=== PATIENT | male | born 1960 | race Caucasian/White ===

== ENCOUNTER 2017-08-10 03:50 | Inpatient (IN) | payer MEDICAID ==
[2017-08-10] VITALS (13 sets, daily range): BP systolic 89–165; BP diastolic 37–94
[~2017-08-10] VITALS: Ht 167.6 cm; Wt 90.7 kg
--- NOTE | 2017-08-10 03:50 | NUR ---
JUVE ALS TO ER BED 5
--- NOTE | 2017-08-10 03:50 | NUR ---
BIB EMS FROM HOME. PATIENT PRESENTS TO ED WITH LEFT SHOULDER PAIN, CHEST PAIN, GENERALIZED PAIN, HYPOTENTION AND BRADYCARDIA. PT ENDSTAGE RENAL DISEASE. A&OX4, DENIES N/V/D; SKIN IS PINK/WARM/DRY; LUNGS CLEAR BL; HR EVEN AND REGULAR; PT DENIES ANY FEVER, SOB, OR COUGH AT THIS TIME; PATIENT STATES PAIN OF 10/10 AT THIS TIME; VSS; PATIENT POSITIONED FOR COMFORT; HOB ELEVATED; BEDRAILS UP X2; BED DOWN. ER MD MADE AWARE OF PT STATUS. CONTINUE TO MONITOR.
[2017-08-10] MEDS ORDERED: LEVOFLOXACIN 500 MG/D5W PREMIX 100 ML IV ONE (04:05)
[2017-08-10] MEDS ORDERED: VANCOMYCIN 1,000 MG in DEXTROSE 5% 250 ML IV ONE (04:05)
[2017-08-10] MEDS ORDERED: NACL 0.9% 2,400 ML IV ONE (04:05)
[2017-08-10 04:27] LABS: BASOPHILS % (AUTO) 0.8 % (0.0-2.0); EOSINOPHILS # (AUTO) 0.1 K/uL (0-0.4); EOSINOPHILS % (AUTO) 1.1 % (0.0-4.0); HEMATOCRIT 34.9 % (36-52); HEMOGLOBIN 11.3 g/dL (12.0-18.0); LYMPHOCYTES # (AUTO) 0.7 K/uL (2.0-11.5); LYMPHOCYTES % (AUTO) 10.8 % (20.5-51.1); MEAN CORPUSCULAR HEMOGLOBIN 31 pg (27-31); MEAN CORPUSCULAR HGB CONC 32 g/dL (33-37); MEAN CORPUSCULAR VOLUME 95.4 fL (80-94); MONOCYTES # (AUTO) 0.4 K/uL (0.8-1.0); MONOCYTES % (AUTO) 5.8 % (1.7-9.3); NEUTROPHILS # (AUTO) 5.1 K/uL (1.8-7.7); NEUTROPHILS % (AUTO) 81.5 % (42.2-75.2); PLATELET COUNT (AUTO) 110 K/uL (140-450); RED BLOOD CELL COUNT(AUTO) 3.66 MIL/uL (4.20-6.10); RED CELL DISTRIBUTION WIDTH 16.4 % (11.6-13.7); WHITE BLOOD COUNT (AUTO) 6.2 K/uL (4.8-10.8)
[2017-08-10 04:42] LABS: ALBUMIN 2.9 g/dL (3.4-5.0); ANION GAP 21.5 (8-16); CARBON DIOXIDE 25.9 mmol/L (21-32); POTASSIUM 5.4 mmol/L (3.5-5.1); TOTAL BILIRUBIN 1.1 mg/dL (0.0-1.0)
[2017-08-10] MEDS ORDERED: VANCOMYCIN 1,000 MG VIAL ONE (05:19)
[2017-08-10] MEDS ORDERED: NOREPINEPHRINE 4 MG/4 ML VIAL IV ONE (05:56)
--- NOTE | 2017-08-10 06:10 | NUR ---
STARTED LEVOPHED 4MG/4ML MIXED IN 250ML OF D5W, AT 5MCG/HR, 18.75ML/HR.
[2017-08-10] MEDS ORDERED: PHO667 PO (06:39)
[2017-08-10] MEDS ORDERED: LOSA50TA39 PO (06:41)
[2017-08-10] MEDS ORDERED: NIFE60TE8 PO (06:43)
[2017-08-10] MEDS ORDERED: MULT-1469 PO (06:44)
[2017-08-10] MEDS ORDERED: SUCR500C PO (06:45)
[2017-08-10] MEDS ORDERED: VITA1TAB44 PO (06:46)
[2017-08-10] MEDS ORDERED: HYDR100T79 PO (06:47)
[2017-08-10] MEDS ORDERED: FURO40TA9 PO (06:48)
[2017-08-10] MEDS ORDERED: NOREPINEPHRINE 4 MG in DEXTROSE 5% 250 ML IV ONE (06:50)
--- NOTE | 2017-08-10 07:05 | NUR ---
GAVE REPORT AND TRANSFERED CARE TO JESSICA INMAN
--- NOTE | 2017-08-10 07:10 | NUR ---
per report from Leonardo INMAN, attempted to obtain urine sample but no urine sample yet. will follow up.
--- NOTE | 2017-08-10 07:10 | NUR ---
asssumed care of patient. pt is aox4. gcs=15. rr are even and unlabored. blood mowzzhui=863/89. vss. awaiting admit orders.
--- NOTE | 2017-08-10 07:10 | NUR ---
levophed at 5mcg/ml and running without difficultly.
[2017-08-10] MEDS ORDERED: NACL 0.9% 1,000 ML IV SCH (07:13)
[2017-08-10] MEDS ORDERED: DOCUSATE SODIUM 100 MG GELCAP PO PRN (07:15)
[2017-08-10] MEDS ORDERED: ONDANSETRON 4 MG/2 ML VIAL IM/IVP PRN (07:15)
[2017-08-10] MEDS ORDERED: MORPHINE SULFATE 2 MG/ML SYR IVP PRN (07:15)
[2017-08-10] MEDS ORDERED: ACETAMINOPHEN 325 MG TAB PO PRN (07:15)
[2017-08-10 07:37] LABS: PROTHROMBIN TIME 11.8 secs (10.8-13.4)
--- NOTE | 2017-08-10 07:46 | NUR ---
endorsed to Lory INMAN no urine sample obtained
--- NOTE | 2017-08-10 07:46 | NUR ---
Patient will be admitted to [facility]. Admited to ICU. Will go to room ICU 3. Belongings list completed. Bedside report to Lory INMAN.
--- NOTE | 2017-08-10 07:50 | NUR ---
ADMITTED PT FROM ER BY RORY. PT AWAKE, ALERT. LAO UZBEK SPEAKING. ON O2 NC 2L/MIN. NO S/S OF RESPIRATORY DISTRESS NOTED AT THIS TIME. HOOKED PT ON BEDSIDE MONITOR SHOWING SR. PT HAS RIGHT ARM AV FISTULA, IV TO LEFT ARM RUNNING LEVOPHED AT 5 MCG/MIN. PT ABLE TO MOVE ALL HIS EXTREMITIES.POC EXPLAINED TO PT, ORIENTED PT, CALL LIGHT IN REACH, WILL CONTINUE TO MONITOR. MRSA NARES SENT TO LAB
[2017-08-10 07:51] LABS: CHOL/HDL RATIO 2.5 (1-4.5); FREE T4 (FREE THYROXINE) 1.17 ng/dL (0.76-1.46); MAGNESIUM 3.4 mg/dL (1.8-2.4); PHOSPHORUS 7.7 mg/dL (2.5-4.9); THYROID STIMULATING HORMONE 3.99 uIU/mL (0.34-3.74)
--- NOTE | 2017-08-10 11:45 | NUR ---
DR. FLORES TALKED WITH PT, EXPLAINED BENEFITS AND RISKS OF CENTRAL LINE INSERTION, PT REFUSED.
[2017-08-10] MEDS ORDERED: VANCOMYCIN PER PHARMACY MC PRN (11:55)
--- NOTE | 2017-08-10 12:00 | NUR ---
HOLD PT LUNCH TRAY DUE TO PT HAS ABD US.
--- NOTE | 2017-08-10 12:50 | NUR ---
PATIENT HAS BEEN SCREENED AND CATEGORIZED HIGH NUTRITION RISK. PATIENT WILL BE SEEN WITHIN 1-2 DAYS OF ADMISSION. 08/10/17 - 08/11/17 DEREK JESUS MBA, RD
--- NOTE | 2017-08-10 14:31 | NUR ---
PT SLEEPING AT THIS TIME. NO S/S OF RESPIRATORY DISTRESS NOTED. PT BP 131/78, HR 68, O2 SATS 95% AT THIS TIME.
[2017-08-10] MEDS: CALCIUM ACETATE 667 MG TAB PO SCH ×2 (14:37→21:45)
--- NOTE | 2017-08-10 16:09 | NUR ---
DIALYSIS NURSE AT BEDSIDE TO START DIALYSIS
--- NOTE | 2017-08-10 18:16 | NUR ---
DIALYSIS IN PROCESS, PT TOLERATED WELL. NO S/S OF RESPIRATORY DISTRESS NOTED.
--- NOTE | 2017-08-10 19:21 | NUR ---
HD NURSE FINISHED TREATMENT. 3.2 L OUT. NO S/S OF ACUTE DISTRESS WILL CONTINUE TO MONITOR.
--- NOTE | 2017-08-10 19:21 | NUR ---
RECEIVED REPORT FROM DAY NURSE NO ACUTE DISTRESS NOTED. WILL CONTINUE TO OBSERVE.
--- NOTE | 2017-08-10 19:35 | NUR ---
PT AAOX4 FOLLOWING COMMANDS MOVING ALL EXTREMITIES WELL. LUNGS DIMINISHED BREATH SOUNDS, DENIES SOB/CP @ THIS TIME. NSR 80S. NO EDEMA NOTED. HD FISTULA TO R UPPER ARM NOTED, + BRUIT/THRILL. ABDOMEN SOFT NON DISTENDED + BOWEL SOUNDS. PT STATES HE URINATES BUT VERY LITTLE DAILY. SKIN INTACT. PERIPHERAL IV X2 TO L LOWER ARM NOTED. NO OTHER S/S OF DISTRESS NOTED. WILL CONTINUE TO OBSERVE.
--- NOTE | 2017-08-10 19:45 | NUR ---
NOTIFIED RADIOLOGY THAT PT FINISHED HD TREATMENT FOR TODAY AND IS READY FOR ULTRASOUND. WILL CONTINUE TO MONITOR.
--- NOTE | 2017-08-10 20:28 | NUR ---
NOTIFIED DR. NELSON INTELLIGENCE OFFICER ABOUT IVF. NEW ORDERS GIVEN. IV CHANGED TO RUN TKO. WILL CONTINUE TO MONITOR.
[2017-08-10] MEDS: NIFEdipine 60 MG TABER PO SCH (21:45)
[2017-08-10] MEDS: FUROSEMIDE 40 MG TAB PO SCH (21:45)
--- NOTE | 2017-08-10 21:50 | NUR ---
ULTRASOUND FINISHED. PT GIVEN LATE DINNER TRAY. DENIES PAIN @ THIS TIME NO OTHER S/S OF DISTRESS NOTED. WILL CONTINUE TO OBSERVE.
[2017-08-10] MEDS: HYDROcodone/APAP 7.5/325 MG 1 TAB PO PRN (22:15)
[2017-08-11] VITALS (7 sets, daily range): BP systolic 98–151; BP diastolic 59–94
--- NOTE | 2017-08-11 00:09 | NUR ---
PT ASLEEP, AROUSABLE. DENIES SOB/CP @ THIS TIME. NO OTHER S/S OF ACUTE DISTRESS NOTED. WILL CONTINUE TO OBSERVE.
[2017-08-11 04:10] LABS: BASOPHILS # (AUTO) 0.1 K/uL (0.00-0.22); BASOPHILS % (AUTO) 1.3 % (0.0-2.0); EOSINOPHILS # (AUTO) 0.1 K/uL (0-0.4); EOSINOPHILS % (AUTO) 2.5 % (0.0-4.0); HEMATOCRIT 33.8 % (36-52); HEMOGLOBIN 10.7 g/dL (12.0-18.0); LYMPHOCYTES # (AUTO) 0.7 K/uL (2.0-11.5); LYMPHOCYTES % (AUTO) 12.7 % (20.5-51.1); MEAN CORPUSCULAR HEMOGLOBIN 31 pg (27-31); MEAN CORPUSCULAR HGB CONC 32 g/dL (33-37); MEAN CORPUSCULAR VOLUME 96.9 fL (80-94); MONOCYTES # (AUTO) 0.5 K/uL (0.8-1.0); NEUTROPHILS # (AUTO) 4.1 K/uL (1.8-7.7); NEUTROPHILS % (AUTO) 74.5 % (42.2-75.2); PLATELET COUNT (AUTO) 102 K/uL (140-450); RED BLOOD CELL COUNT(AUTO) 3.49 MIL/uL (4.20-6.10); RED CELL DISTRIBUTION WIDTH 16.8 % (11.6-13.7); WHITE BLOOD COUNT (AUTO) 5.4 K/uL (4.8-10.8)
[2017-08-11 05:59] LABS: MAGNESIUM 2.8 mg/dL (1.8-2.4)
[2017-08-11 06:00] LABS: PHOSPHORUS 6.8 mg/dL (2.5-4.9)
--- NOTE | 2017-08-11 06:00 | NUR ---
AM CARE DONE. LINEN CHANGED. PT DENIES CP/ SOB. NO ACUTE S/S OF DISTRESS NOTED. WILL CONTINUE TO OBSERVE.
[2017-08-11 06:18] LABS: ANION GAP 12.7 (8-16); CARBON DIOXIDE 28.9 mmol/L (21-32); POTASSIUM 4.6 mmol/L (3.5-5.1)
[2017-08-11 06:20] LABS: CREATININE 6.1 mg/dL (0.7-1.3)
--- NOTE | 2017-08-11 06:45 | NUR ---
DR. FLORES @ BEDSIDE TALKING TO PT.
--- NOTE | 2017-08-11 07:18 | NUR ---
REPORT GIVEN TO DAY NURSE. ORDERS POC UPDATED. NO ACUTE DISTRESS WILL CONTINUE TO OBSERVE.
--- NOTE | 2017-08-11 07:30 | NUR ---
RECEIVED PT FROM PM NURSE, PT AWAKE, ALERT AND ORIENTED. BEDSIDE MONITOR SHOWS SR. ON O2 NC 2L/MIN, NO S/S OF RESPIRATORY DISTRESS NOTED. IV SITE INTACT AND PATENT. SCDS IN PLACE, PT ABLE TO MOVE ALL HIS EXTREMITIES.POC EXPLAINED TO PT, PT VERBALIZED UNDERSTANDING, CALL LIGHT IN REACH, WILL CONTINUE TO MONITOR.
[2017-08-11] MEDS: NIFEdipine 60 MG TABER PO SCH ×2 (08:19→20:41)
[2017-08-11] MEDS: FUROSEMIDE 40 MG TAB PO SCH ×2 (08:20→20:41)
[2017-08-11] MEDS: LOSARTAN 50 MG TAB PO SCH (08:20)
[2017-08-11] MEDS: LACTOBACILLUS RHAMNOSUS GG 1 EACH CAP PO SCH (08:20)
[2017-08-11] MEDS: VIT-B COMP/VIT-C/FOLIC ACID 1 TAB PO SCH (08:20)
[2017-08-11] MEDS: CALCIUM ACETATE 667 MG TAB PO SCH ×3 (08:20→16:44)
--- NOTE | 2017-08-11 08:45 | NUR ---
OFFERED PT BREAKFAST TRAY, PT HAD A GOOD APPETITE.
[2017-08-11] MEDS ORDERED: VIT-B COMP/VIT-C/FOLIC ACID 1 TAB PO SCH (09:00)
[2017-08-11] MEDS ORDERED: VANCOMYCIN 1GM/DEXT 5% PREMIX 200 ML IV SCH (09:00)
--- NOTE | 2017-08-11 10:45 | NUR ---
PT TRANSFERRED TO [place] [id number] BY RORY, PT AWAKE, ALERT, AND ORIENTED. ON O2 NC 2L/MIN, NO S/S OF RESPIRATORY DISTRESS NOTED. PT WALKED TO BED FROM HALLWAY.
--- NOTE | 2017-08-11 11:05 | NUR ---
RECEIVED PATIENT FROM ICU ,MACKENZIE RN FOR CONTINUITY OF CARE. PATIENT AWAKE A/OX4 O2 2L/NC NO S/S OF RESP DISTRESS NOTED. DENIES ANY PAIN. AV SHUNT GINI BRUIT AND THRILL. SPOKE WITH ADALID LOYOLA DIALYSIS NURSE, SCHEDULED HD LATE AFTERNOON BECAUSE OF THORACENTESIS NEEDS TO BE DONE FIRST. SPOKE WITH CARRIE SpineForm TECH NEEDS TO REEVALUATE THE FLUID BEFORE THORACENTESIS. PLAN OF CARE DISCUSSED WITH THE PATIENT VITALS STABLE WILL CONTINUE TO MONITOR.
--- NOTE | 2017-08-11 12:18 | NUR ---
FAXED INITIAL REVIEW TO [facility] [phone] PHONE JOSIAS [phone] FAXED INITIAL REVIEW TO KIMBER [phone] PHONE CLEMENT [phone]
[2017-08-11] MEDS ORDERED: PIPER/TAZO 3.375GM/D5W PREMIX 50 ML IV SCH (13:00)
--- NOTE | 2017-08-11 14:41 | NUR ---
08/11/17 RD INITIAL ASSESSMENT COMPLETED PLEASE REFER TO NUTRITION ASSESSMENT UNDER CARE ACTIVITY FOR ESTIMATED NUTRITIONAL NEEDS. 1. CONTINUE RENAL, NA2 GM, LOW PHOSPHORUS DIET TOLERATED 2. PROVIDE PT WITH RENAL DIET EDUCATION 3. RD TO FOLLOW-UP 2-3 DAYS, HIGH RISK ANNE XIONG, VIVI
--- NOTE | 2017-08-11 16:47 | NUR ---
DUE MEDS GIVEN TOLERATED WELL ,VITALS STABLE
--- NOTE | 2017-08-11 18:57 | NUR ---
PATIENT IS HAVING HEMODIALYSIS , SAFETY MAINTAINED CALL LIGHT IN REACH.
--- NOTE | 2017-08-11 19:25 | NUR ---
INCREASED NASAL CANNULA FROM 2LPM TO 3LPM DUE TO SAO2 AT 88% , ON 3LPM SAO2-94%
--- NOTE | 2017-08-11 19:30 | NUR ---
ASSUMED CARE OF PATIENT, AWAKE. NO COMPLAINS. S/P HD NOTED. CALL LIGHT WITHIN REACH.
[2017-08-11] MEDS: PIPER/TAZO 2.25GM/D5W PREMIX 50 ML IV SCH (20:42)
--- NOTE | 2017-08-11 21:09 | NUR ---
JUST FINISHED EATING DINNER. NO COMPLAINS. VITAL SIGNS STABLE. AFEBRILE. DUE MEDS GIVEN. CARE BOARD UPDATED. CALL LIGHT WITHIN REACH. PLAN OF CARE DISCUSSED WITH PATIENT, VERBALIZED UNDERSTANDING WELL.
[2017-08-12 01:23] VITALS: BP 121/70
--- NOTE | 2017-08-12 01:25 | NUR ---
ASLEEP EASILY AROUSABLE. NO COMPLAINS. VITAL SIGNS STABLE. CALL LIGHT WITHIN REACH.
[2017-08-12] MEDS: PIPER/TAZO 2.25GM/D5W PREMIX 50 ML IV SCH ×3 (04:27→21:26)
[2017-08-12 04:37] VITALS: BP 95/57
--- NOTE | 2017-08-12 04:38 | NUR ---
ASLEEP NO COMPLAINS. VITAL SIGNS STABLE. AFEBRILE. CALL LIGHT WITHIN REACH.
--- NOTE | 2017-08-12 05:45 | NUR ---
UPON MAKING ROUNDS, PATIENT VERBALIZED PROTEIN CHEMIST ORIENTEE DRAWN THE PATIENT IN THE RESTRICTED ARM RIGHT ARM. PRECEPTOR RAY WAS NOT IN THE ROOM WHEN PATIENT BEING DRAWN. ARM BAND WITH RESTRICTED ARM ON-PINK BAND. SIGN POSTED INSIDE ROOM, ORIENTEE VERBALIZED SHE DOES NOT KNOWN ABOUT IT AND REINFORCED THE IMPORTANCE. ASKED THE PATIENT WHY HE ALLOWED THE ORIENTEE TO PROCEED, PATIENT DID NOT ANSWER MY QUESTION. REGIONAL WILDLIFE AGENT KRIS MADE AWARE.
[2017-08-12 06:09] LABS: BASOPHILS # (AUTO) 0.1 K/uL (0.00-0.22); BASOPHILS % (AUTO) 1.4 % (0.0-2.0); EOSINOPHILS # (AUTO) 0.1 K/uL (0-0.4); EOSINOPHILS % (AUTO) 1.6 % (0.0-4.0); HEMOGLOBIN 10.7 g/dL (12.0-18.0); LYMPHOCYTES # (AUTO) 0.8 K/uL (2.0-11.5); LYMPHOCYTES % (AUTO) 15.1 % (20.5-51.1); MEAN CORPUSCULAR HEMOGLOBIN 31 pg (27-31); MEAN CORPUSCULAR HGB CONC 32 g/dL (33-37); MEAN CORPUSCULAR VOLUME 95.9 fL (80-94); MONOCYTES # (AUTO) 0.5 K/uL (0.8-1.0); MONOCYTES % (AUTO) 9.1 % (1.7-9.3); NEUTROPHILS # (AUTO) 3.9 K/uL (1.8-7.7); NEUTROPHILS % (AUTO) 72.8 % (42.2-75.2); PLATELET COUNT (AUTO) 97 K/uL (140-450); RED BLOOD CELL COUNT(AUTO) 3.44 MIL/uL (4.20-6.10); RED CELL DISTRIBUTION WIDTH 16.4 % (11.6-13.7); WHITE BLOOD COUNT (AUTO) 5.4 K/uL (4.8-10.8)
[2017-08-12 06:22] LABS: T4 (THYROXINE) 4.9 ug/dL (4.5-12.0)
[2017-08-12 06:47] LABS: CARBON DIOXIDE 26.7 mmol/L (21-32); POTASSIUM 4.7 mmol/L (3.5-5.1)
[2017-08-12 06:53] LABS: CREATININE 7.3 mg/dL (0.7-1.3)
[2017-08-12 06:55] LABS: MAGNESIUM 2.9 mg/dL (1.8-2.4); PHOSPHORUS 7.5 mg/dL (2.5-4.9)
--- NOTE | 2017-08-12 07:29 | NUR ---
ENDORSED CARE AT BEDSIDE WITH BRANDEN INMAN, PATIENT IN STABLE CONDITION.
--- NOTE | 2017-08-12 08:02 | NUR ---
AWAKE AND ALERT RESPONSIVE TO COMMUNITY DEVELOPMENT MANAGER VERBAL COMMANDS PATIENT OFF SUPPLEMENTAL OXYGEN AT THIS TIME SATURATION 85% PLACED BACK ON SUPPLEMENTAL OXYGEN AT 3 LPM VIA FL HEMODIALYSIS IN PROGRESS TOY PAINTER AT BEDSIDE AND AWARE OF SATURATION
[2017-08-12 08:17] VITALS: BP 110/62
[2017-08-12 08:18] LABS: HEPATITIS A ANTIBODY IGM Negative (Negative); HEPATITIS B CORE AB TOTAL Negative (Negative); HEPATITIS B SURFACE ANTIBODY Non Reactive (.); HEPATITIS B SURFACE ANTIGEN Negative (Negative)
[2017-08-12] MEDS: FUROSEMIDE 40 MG TAB PO SCH ×2 (11:25→21:26)
[2017-08-12] MEDS: LACTOBACILLUS RHAMNOSUS GG 1 EACH CAP PO SCH (11:26)
[2017-08-12] MEDS: LOSARTAN 50 MG TAB PO SCH (11:27)
[2017-08-12] MEDS: CALCIUM ACETATE 667 MG TAB PO SCH ×3 (11:27→18:58)
[2017-08-12] MEDS: NIFEdipine 60 MG TABER PO SCH ×2 (11:28→21:26)
[2017-08-12] MEDS: VIT-B COMP/VIT-C/FOLIC ACID 1 TAB PO SCH (11:31)
--- NOTE | 2017-08-12 11:53 | NUR ---
Faxed Clinical REVIEW TO AL YOGI [phone] PHONE JOSIAS [phone] Faxed Clinical REVIEW TO KIMBER [phone] PHONE CLEMENT [phone]
[2017-08-12 12:00] VITALS: BP 130/66
[2017-08-12] MEDS: HYDROcodone/APAP 7.5/325 MG 1 TAB PO PRN (13:14)
[2017-08-12 16:23] VITALS: BP 128/67
--- NOTE | 2017-08-12 18:33 | NUR ---
FOUND PT WITH NASAL CANNULA OFF SAT 89. PLACED PT ON NC @ 2LPM. SAT 93 HR 73 RR 18. EXPLAINED TO PT THE PT NEED O2 AND TO NOT TAKE OFF NC. WILL CONT TO MONITOR PT.
--- NOTE | 2017-08-12 19:30 | NUR ---
REPORT RECEIVED FROM AM NURSE. PT IN STABLE CONDITION. WILL CONTINUE TO MONITOR.
--- NOTE | 2017-08-12 21:35 | NUR ---
PM MEDS GIVEN. PT TOLERATED WELL. BOARD WAS UPDATED. PT AMBULATORY. IV SITES ARE PATENT AND INTACT L WRIST AND AC 20G. WILL CONTINUE TO MONITOR.
[2017-08-13] VITALS: BP 111/64
--- NOTE | 2017-08-13 | NUR ---
VS STABLE. PT SLEEPING BUT AROUSABLE. WILL CONTINUE TO MONITOR.
--- NOTE | 2017-08-13 01:17 | NUR ---
PT DOCUMENTATION OF BASIC ADLS AT 1800 NOT DONE. COMPLETING WITH MY KNOWLEDGE OF PT INFORMATION.
--- NOTE | 2017-08-13 03:00 | NUR ---
PT ASLEEP BUT AWAKE AND ALERT UPON ENTERING THE ROOM. PT NOT IN ACUTE DISTRESS. WILL CONTINUE TO MONITOR.
[2017-08-13] MEDS: PIPER/TAZO 2.25GM/D5W PREMIX 50 ML IV SCH ×2 (04:57→12:35)
--- NOTE | 2017-08-13 05:15 | NUR ---
PT IV SITE LEAKING AND INFILTRATED. AREA COOL TO TOUCH AND PAIN PRESENT. IV SITE LEFT HAND DC. CANNULA INTACT. PT TOLERATED WELL. STILL HAS IV IN LEFT FOREARM. PT NOT IN ACUTE DISTRESS. WILL CONTINUE TO MONITOR.
[2017-08-13 06:49] LABS: BASOPHILS # (AUTO) 0.1 K/uL (0.00-0.22); BASOPHILS % (AUTO) 1.6 % (0.0-2.0); EOSINOPHILS # (AUTO) 0.1 K/uL (0-0.4); EOSINOPHILS % (AUTO) 2.5 % (0.0-4.0); HEMATOCRIT 34.4 % (36-52); HEMOGLOBIN 11.2 g/dL (12.0-18.0); LYMPHOCYTES # (AUTO) 0.9 K/uL (2.0-11.5); LYMPHOCYTES % (AUTO) 17.9 % (20.5-51.1); MEAN CORPUSCULAR HEMOGLOBIN 31 pg (27-31); MEAN CORPUSCULAR HGB CONC 33 g/dL (33-37); MEAN CORPUSCULAR VOLUME 95.8 fL (80-94); MONOCYTES # (AUTO) 0.4 K/uL (0.8-1.0); MONOCYTES % (AUTO) 8.4 % (1.7-9.3); NEUTROPHILS # (AUTO) 3.3 K/uL (1.8-7.7); NEUTROPHILS % (AUTO) 69.6 % (42.2-75.2); PLATELET COUNT (AUTO) 96 K/uL (140-450); RED BLOOD CELL COUNT(AUTO) 3.59 MIL/uL (4.20-6.10); RED CELL DISTRIBUTION WIDTH 16.6 % (11.6-13.7); WHITE BLOOD COUNT (AUTO) 4.8 K/uL (4.8-10.8)
[2017-08-13 07:05] LABS: ANION GAP 14.1 (8-16); CARBON DIOXIDE 30.5 mmol/L (21-32); POTASSIUM 4.6 mmol/L (3.5-5.1)
[2017-08-13 07:20] LABS: MAGNESIUM 2.6 mg/dL (1.8-2.4)
--- NOTE | 2017-08-13 07:22 | NUR ---
DAWNA FROM LAB CALLED AND REPORTED THE CRITICAL VALUE OF CREATININE FOR THE PT. IS 6.9, ACKNOWLEDGED AND WILL INFORM THE MD.
--- NOTE | 2017-08-13 07:25 | NUR ---
REPORT GIVEN TO AM NURSE. PT IN STABLE CONDITION.
[2017-08-13 07:27] LABS: CREATININE 6.5 mg/dL (0.7-1.3)
--- NOTE | 2017-08-13 07:30 | NUR ---
RECEIVED PT FROM DIRECT MARKETING SPECIALIST NURSEISMAEL, PT IS AWAKE AND LYING ON THE BED WITH A FISTULA ON THE RT UPPER ARM AND A LEFT FOREARM PERIPHERAL LINE G. 20, SALINE LOCK, INTACT. SIDE RAILS ARE UP AND CALL LIGHT WITHIN REACH. NURSING CARE PLAN DISCUSSED AND PT VERBALIZED UNDERSTANDING. NO SIGN OF DISTRESS NOTED AND WILL CONTINUE TO MONITOR.
[2017-08-13 08:00] VITALS: BP 109/62
--- NOTE | 2017-08-13 08:00 | NUR ---
PT IS AWAKE AND JUST HAD HIS BREAKFAST, VITAL SIGNS TAKEN AND STABLE, NO SIGN OF DISTRESS NOTED. CALL LIGHT WITHIN REACH AND SIDE RAILS ARE UP. WILL CONTINUE TO MONITOR.
[2017-08-13] MEDS: FUROSEMIDE 40 MG TAB PO SCH (08:55)
[2017-08-13] MEDS: VIT-B COMP/VIT-C/FOLIC ACID 1 TAB PO SCH (08:55)
[2017-08-13] MEDS: NIFEdipine 60 MG TABER PO SCH (08:55)
[2017-08-13] MEDS: LOSARTAN 50 MG TAB PO SCH (08:56)
[2017-08-13] MEDS: CALCIUM ACETATE 667 MG TAB PO SCH ×2 (08:56→12:42)
[2017-08-13] MEDS: LACTOBACILLUS RHAMNOSUS GG 1 EACH CAP PO SCH (08:56)
--- NOTE | 2017-08-13 09:59 | NUR ---
ACKNOWLEDGED AN ORDER FOR THE PT FOR A SOCIAL SERVICE REQUEST, PT NEEDS A HOME HEALTH WITH PT AND A HOME SAFETY EVALUATION.
--- NOTE | 2017-08-13 10:30 | NUR ---
CALLED ENGINEERING AND SPOKE TO JAMES REGARDING THE WATER DRIPPING FROM THE VENT ON THE CEILING AT THE FRONT DOOR IN THE PT'S ROOM, JAMES SAID THAT SHE WILL SEND SOMEBODY TO CHECK IT.
--- NOTE | 2017-08-13 10:45 | NUR ---
SPOKE TO DR. YOUSSEF REGARDING THE PT'S HX OF DM AND ASKED IF PT IF PT NEEDS TO HAVE A BLOOD GLUCOSE CHECKING BEC NO ORDER WAS SEEN IN THE PT'S PROFILE. DR. YOUSSEF SAID THAT HE WILL PUT AN ORDER.
--- NOTE | 2017-08-13 11:20 | NUR ---
Jewelry Model Maker Note: I met with patient at bedside. Patient Citizen Of [place] speaking. I informed him of MD's request for home health services for him. Patient in agreement with home health services. I explained to him case finishing machine adjuster Lara will contact case finishing machine adjuster from his health insurance plan to coordinate home health services and that home health will contact him (patient) regarding home visits. He verbalized understanding. I verified with patient, home address and phone number listed on face sheet.
--- NOTE | 2017-08-13 12:15 | NUR ---
DR. PULIDO IS ON THE STATION AND SPOKE TO ME REGARDING THE PT'S STATUS. INFORMED THE MD THAT THE PT HAS NO PAIN AND THAT PT IS ON 2L O2 NC, DR. PULIDO SAID TO HAVE THE PT WALK WITHOUT AN O2 IN PLACE AND OBSERVE IF PT WILL HAVE SOB. ORDER ACKNOWLEDGED.
--- NOTE | 2017-08-13 12:20 | NUR ---
PT WALKED IN THE HALLWAY WITH THE PT, RACHEL AND NO SOB NOTED BUT OS SAT IS RANGING FROM 89% - 95% WITHOUT ANY SIGN OF DISTRESS. ASSISTED PT BACK TO ROOM AND BED.
--- NOTE | 2017-08-13 12:35 | NUR ---
PT RACHEL INFORMED ME THAT PT'S O2 SAT WENT DOWN TO 86 WHEN THEY DID AN EXERCISE. PT WAS HOOKED UP ON O2 VIA NC. NO SIGN OF DISTRESS NOTED. WILL CONTINUE TO MONITOR.
--- NOTE | 2017-08-13 12:50 | NUR ---
DR. FLORES SPOKE TO THE PT AND INFORMED THE PT THAT HE WILL BE DISCHARGE TODAY.
--- NOTE | 2017-08-13 12:55 | NUR ---
PT IS AWAKE AND HAVING HIS LUNCH, MEDICATIONS GIVEN THRU IVPB, PT TOLERATED IT AND NO SIGN OF DISTRESS NOTED. WILL CONTINUE TO MONITOR.
--- NOTE | 2017-08-13 13:03 | NUR ---
ACKNOWLEDGED A DISCHARGE ORDER PLACED FOR THE PT AT 12:45H, WILL FACILITATE DISCHARGE ORDER.
--- NOTE | 2017-08-13 14:27 | NUR ---
Sarah contacted for home PT edgar and unable to provide because he lives in [facility]. Mariajose Bergeron contacted, spoke to Andressa at cell [phone] and unable to provide for the same reason, he lives in [facility] and he is out of network.
--- NOTE | 2017-08-13 15:17 | NUR ---
Poising Inspector Note: I met with patient at bedside. Nepalese speaking. I explained to him disability case manager Lara was not able to coordinate home health services because he lives in [facility] and his health insurance is from [facility]. I informed him his health insurance plan stated they do not have any contracts with home health agencies that serve [facility]. He reported he use to live in [place], [place] about 3 months ago. I advised him to contact health insurance and inform them he now lives in [facility]. He verbalized understanding. He reported not having any questions nor concerns at this time.
--- NOTE | 2017-08-13 16:15 | NUR ---
DISCHARGED PT VIA WHEELCHAIR ACCOMPANIED BY THE SON, IV LINE AND ARM BANDS REMOVED. DISCHARGED INSTRUCTIONS GIVEN AND PT IS STABLE AT THIS TIME.
--- NOTE | 2017-08-14 14:57 | NUR ---
RECEIVED A CALL FROM [facility]. SHE SAID THAT [facility] CALLED AND THEY DIDN'T GET REVIEW ON THIS PATIENT. FAXED ER REPORT, H&P, CONSULTS AND PROGRESS NOTE TO THEM AT [phone] PHONE [phone].
== END 2017-08-13 16:15 | disposition home or self-care (01) | DRG 469 ==
LOC: MED 03:50 → MIC 07:18 → MTU 08-11 10:30
PROVIDERS: ADMIT Student in an Organized Health Care Education/Training Program; ATTEND Student in an Organized Health Care Education/Training Program
PROC: 5A1D70Z Performance of Urinary Filtration, Intermittent, Less than 6 Hours Per Day (ICD-10-PCS; principal; 2017-08-10)
PROC: 5A1D70Z Performance of Urinary Filtration, Intermittent, Less than 6 Hours Per Day (ICD-10-PCS; 2017-08-12)
DX: N17.0 Acute kidney failure with tubular necrosis (principal); J96.01 Acute respiratory failure with hypoxia; R57.9 Shock, unspecified; J69.0 Pneumonitis due to inhalation of food and vomit; I50.43 Acute on chronic combined systolic (congestive) and diastolic (congestive) heart failure; R18.8 Other ascites; E83.41 Hypermagnesemia; N18.6 End stage renal disease; D53.1 Other megaloblastic anemias, not elsewhere classified; I13.2 Hypertensive heart and chronic kidney disease with heart failure and with stage 5 chronic kidney disease, or end stage renal disease; E11.22 Type 2 diabetes mellitus with diabetic chronic kidney disease; E44.0 Moderate protein-calorie malnutrition; E87.5 Hyperkalemia; Z53.29 Procedure and treatment not carried out because of patient's decision for other reasons; E83.39 Other disorders of phosphorus metabolism; E66.9 Obesity, unspecified; N25.81 Secondary hyperparathyroidism of renal origin; D63.1 Anemia in chronic kidney disease; Z79.899 Other long term (current) drug therapy; Z99.2 Dependence on renal dialysis; Z83.3 Family history of diabetes mellitus; Z87.891 Personal history of nicotine dependence; Z68.32 Body mass index [BMI] 32.0-32.9, adult
CPT/HCPCS: 36415; 71045; 71250; 76604; 76705; 76770; 80048; 80053; 80202; 82150; 83036; 83605; 83690; 83735; 83880; 84100; 84436; 84439; 84443; 84479; 85025; 85610; 85730; 86704; 86706; 86708; 86709; 86803; 87040; 87081; 87340; 90935; 93005; 96365; 96367; 97110; 97116; 97530; 99291; C1758; J1956; J2405; J2543; J3370; J3490; J7030; Q0092

== ENCOUNTER 2018-07-18 00:44 | Inpatient (IN) | payer MEDICAID ==
[~2018-07-18] VITALS: Ht 170.2 cm; Wt 70.3 kg
[~2018-07-18 00:44] MED LIST: FURO40TA9 PO; HYDR100T79 PO; LOSA50TA66 PO; MULT-1469 PO; NIFE60TE8 PO; PHO667 PO; SUCR500C PO; VITA1TAB44 PO
[2018-07-18 00:46] VITALS: BP 156/80
--- NOTE | 2018-07-18 00:46 | NUR ---
TO BED # 04 AMBULATORY
--- NOTE | 2018-07-18 01:07 | NUR ---
PT BIB SON C/O SOB, 68% ON RA ON ARRIVAL. STARTED YESTERDAY AFTER A MISSED DIALYSIS APPOINTMENT. DENIES CP. LUNG SOUNDS DIMINISHED BILAT THROUGHOUT. PLACED ON 4L AND 94% SPO2 RESULTED. PT DIAPHORETIC, RESPIRATIONS EVEN/LABORED/GRUNTING NOTED/TRIPOD POSITION. SHUNT TO RUE. PLACED ON FULL MONITOR, BED IN LOW POSITION/LOCKED, SIDE RAIL UP X 1. DR. GREGORY MADE AWARE.
--- NOTE | 2018-07-18 01:09 | NUR ---
DR. GREGORY AT BEDSIDE
--- NOTE | 2018-07-18 01:10 | NUR ---
REPORT TO PRASAD CHAPA RN, TRANSFER OF CARE AT THIS TIME.
--- NOTE | 2018-07-18 01:11 | NUR ---
RECEIVED REPORT FROM JONATHAN INMAN, FOR CONTINUED CARE.
[2018-07-18 01:17] LABS: BASOPHILS # (AUTO) 0.1 K/uL (0.00-0.22); BASOPHILS % (AUTO) 0.7 % (0.0-2.0); EOSINOPHILS # (AUTO) 0.1 K/uL (0-0.4); EOSINOPHILS % (AUTO) 1.4 % (0.0-4.0); HEMATOCRIT 32.9 % (36-52); LYMPHOCYTES # (AUTO) 1.9 K/uL (2.0-11.5); LYMPHOCYTES % (AUTO) 19.8 % (20.5-51.1); MEAN CORPUSCULAR HEMOGLOBIN 32 pg (27-31); MEAN CORPUSCULAR HGB CONC 34 g/dL (33-37); MEAN CORPUSCULAR VOLUME 93.7 fL (80-94); MONOCYTES # (AUTO) 0.9 K/uL (0.8-1.0); MONOCYTES % (AUTO) 9.8 % (1.7-9.3); NEUTROPHILS # (AUTO) 6.6 K/uL (1.8-7.7); NEUTROPHILS % (AUTO) 68.3 % (42.2-75.2); PLATELET COUNT (AUTO) 297 K/uL (140-450); RED BLOOD CELL COUNT(AUTO) 3.51 MIL/uL (4.20-6.10); RED CELL DISTRIBUTION WIDTH 15.4 % (11.6-13.7); WHITE BLOOD COUNT (AUTO) 9.7 K/uL (4.8-10.8)
[2018-07-18 01:36] LABS: PROTHROMBIN TIME 10.3 secs (10.8-13.4)
[2018-07-18 01:51] LABS: ANION GAP 19.7 (8-16); CARBON DIOXIDE 25.9 mmol/L (21-32); POTASSIUM 5.6 mmol/L (3.5-5.1)
[2018-07-18 01:52] LABS: ALBUMIN 3.4 g/dL (3.4-5.0)
[2018-07-18 01:53] LABS: CREATININE 10.2 mg/dL (0.7-1.3)
[2018-07-18] MEDS ORDERED: NITROGLYCERIN 2% 1 GM PKT TP ONE (02:00)
[2018-07-18] MEDS ORDERED: ONDANSETRON 4 MG/2 ML VIAL IM/IVP PRN (03:00)
--- NOTE | 2018-07-18 03:20 | NUR ---
pATIENT ADMITTED TO TELE UNIT UNDER CARE OF DR. LARSON. REPORT GIVEN TO TELE NURSE, ROY. LEWIS TRANSPORTED ON MONITOR IN [facility]. VSS DURING TRANSFER.
--- NOTE | 2018-07-18 03:25 | NUR ---
ADMITTED THIS 57 YEAR OLD FROM ER PER RORY WITH CC OF SOB AND CONSTIPATION, AMBULATED TO BED WITH STANDBY ASSIST, VITAL SIGNS TAKEN, SAT-94% ON O2 4L VIA NASAL CANNULA, BP SLIGHTLY ELEVATED, DENIES CHEST PAIN, NO SOB NOTED AT THIS TIME, ASSESSMENT DONE, HX OBTAINED WITH nfon CAT TENDER NARINDER #[id number], ORIENTED TO ROOM AND CALL LIGHT, DR SLOAN CAME IN AND ASSESS THE PT, PLAN OF DISCUSSED, SAFETY MEASURES IN PLACE, CALL LIGHT WITHIN REACH.
[2018-07-18 03:30] VITALS: BP 155/70
[2018-07-18 03:43] LABS: CHOL/HDL RATIO 4.1 (1-4.5); FREE T4 (FREE THYROXINE) 1.36 ng/dL (0.76-1.46); MAGNESIUM 3.1 mg/dL (1.8-2.4); PHOSPHORUS 8.5 mg/dL (2.5-4.9); THYROID STIMULATING HORMONE 2.53 uIU/mL (0.34-3.74)
[2018-07-18] MEDS ORDERED: BISACODYL 10 MG SUPP RC PRN (04:45)
[2018-07-18] MEDS ORDERED: ALBUTEROL SULFATE/IPRATROPIU 3 ML SOL IH PRN (04:45)
[2018-07-18] MEDS ORDERED: BISACODYL 10 MG SUPP RC SCH (05:00)
[2018-07-18] MEDS ORDERED: METOPROLOL 25 MG TAB PO SCH (05:00)
[2018-07-18] MEDS ORDERED: LACTULOSE 20 GM/30 ML UDC PO SCH (05:00)
--- NOTE | 2018-07-18 05:46 | NUR ---
PT AMBULATED TO BR WITH STEADY GAIT, STATED ONLY HAD SMALL LOOSE STOOL, NO SOLID PIECE NOTED, PT BACK TO BED AND RESUMED O2 4L NASAL CANNULA, NO SOB NOTED, MONITORED CLOSELY.
--- NOTE | 2018-07-18 07:10 | NUR ---
PT AWAKE, NO SIGNS OF DISTRESS, REPORT GIVEN TO HENNY POLO FOR CONTINUITY OF CARE.
--- NOTE | 2018-07-18 07:11 | NUR ---
RECEIVED REPORT FROM LIME PULLER NURSE. PATIENT SITTING IN BED. NO DISTRESS NOTED. DENIES ANY PAIN. AAOX3, CALM, COOPERATIVE, SKIN COLOR APPROPRIATE TO ETHNICITY, WARM TO TOUCH. SKIN INTACT. HAS RIGHT UPPER ARM AV FISTULA NOTED, THRILL FELT, BREWING HEARD. PER PATIENT, HAD SMALL BM LAST NIGHT. IV SITE INTACT, PATENT, ON SALINE LOCK. REVIEWED PLAN OF CARE WITH PATIENT. PATIENT VERBALIZED UNDERSTANDING. SAFETY MEASURES IN PLACE, CALL LIGHT WITHIN REACH. WILL CONTINUE TO MONITOR.
[2018-07-18 08:00] VITALS: BP 127/71
--- NOTE | 2018-07-18 08:10 | NUR ---
CALLED RAUL AT ACUTE DIALYSIS AND NOTIFIED HER WITH THE PT'S HEMODIALYSIS PLAN FOR TODAY.
[2018-07-18] MEDS: METOPROLOL 25 MG TAB PO SCH ×2 (09:00→20:22)
[2018-07-18] MEDS: LACTULOSE 20 GM/30 ML UDC PO SCH ×2 (09:37→20:22)
--- NOTE | 2018-07-18 09:45 | NUR ---
PATIENT SITTING IN BED. NO DISTRESS NOTED. DENIES ANY PAIN. SCHEDULED MEDICATIONS DUE GIVEN. WILL CONTINUE TO MONITOR.
[2018-07-18] MEDS: ALBUTEROL SULFATE/IPRATROPIU 3 ML SOL IH SCH ×3 (10:07→20:02)
--- NOTE | 2018-07-18 10:20 | NUR ---
TOLERATED INCENTIVE SPIROMETRY THERAPY WELL WITHOUT INCIDENT ENCOURAGED PATIENT WITH ACKNOWLEDGEMENT TO USE INCENTIVE SPIROMETRY EVERY 1-2 HOURS WHILE AWAKE
--- NOTE | 2018-07-18 10:30 | NUR ---
HEMODIALYSIS NURSE ON UNIT READY TO START HD PER MD ORDERS. WILL CONTINUE TO MONITOR.
[2018-07-18 12:00] VITALS: BP 140/71
--- NOTE | 2018-07-18 12:23 | NUR ---
PATIENT LYING DOWN IN BED RECEIVING HEMODIALYSIS. NO DISTRESS NOTED. DENIES ANY PAIN. WILL CONTINUE TO MONITOR.
--- NOTE | 2018-07-18 15:15 | NUR ---
PATIENT SITTING IN BED WATCHING TV. NO DISTRESS NOTED. DENIES ANY PAIN. WILL CONTINUE TO MONITOR.
[2018-07-18 15:22] LABS: BASOPHILS # (AUTO) 0.1 K/uL (0.00-0.22); BASOPHILS % (AUTO) 0.8 % (0.0-2.0); EOSINOPHILS # (AUTO) 0.1 K/uL (0-0.4); EOSINOPHILS % (AUTO) 1.1 % (0.0-4.0); HEMOGLOBIN 10.6 g/dL (12.0-18.0); LYMPHOCYTES % (AUTO) 13.3 % (20.5-51.1); MEAN CORPUSCULAR HEMOGLOBIN 31 pg (27-31); MEAN CORPUSCULAR HGB CONC 33 g/dL (33-37); MEAN CORPUSCULAR VOLUME 93.6 fL (80-94); MONOCYTES # (AUTO) 0.6 K/uL (0.8-1.0); MONOCYTES % (AUTO) 7.5 % (1.7-9.3); NEUTROPHILS # (AUTO) 5.7 K/uL (1.8-7.7); NEUTROPHILS % (AUTO) 77.3 % (42.2-75.2); PLATELET COUNT (AUTO) 285 K/uL (140-450); RED BLOOD CELL COUNT(AUTO) 3.42 MIL/uL (4.20-6.10); RED CELL DISTRIBUTION WIDTH 15.7 % (11.6-13.7); WHITE BLOOD COUNT (AUTO) 7.4 K/uL (4.8-10.8)
[2018-07-18 16:00] VITALS: BP 154/74
[2018-07-18 16:06] LABS: ANION GAP 15.1 (8-16); CARBON DIOXIDE 29.2 mmol/L (21-32); POTASSIUM 3.3 mmol/L (3.5-5.1)
[2018-07-18 16:09] LABS: CREATININE 6.1 mg/dL (0.7-1.3)
[2018-07-18] MEDS: DOCUSATE SODIUM 100 MG GELCAP PO PRN (17:37)
--- NOTE | 2018-07-18 17:37 | NUR ---
PATIENT SITTING IN BED WATCHING TV. NO BM TODAY. COLACE GIVEN AT THIS TIME. WILL CONTINUE TO MONITOR.
--- NOTE | 2018-07-18 19:25 | NUR ---
GAVE REPORT TO SENIOR ANDROID SOFTWARE ENGINEER NURSE FOR CONTINUITY OF CARE. PATIENT IN STABLE CONDITION.
--- NOTE | 2018-07-18 19:26 | NUR ---
RECEIVED PT SLEEPING ON HIGH FOWLERS POSITION, EASILY AROUSABLE, AAOX4, ABLE TO MAKE NEEDS KNOWN, VITAL SIGNS STABLE, SAT-96% ON O2 3L NC, NO SOB NOTED, DENIES ANY PAIN, PLAN OF CARE DISCUSSED, SAFETY MEASURES IN PLACE, CALL LIGHT WITHIN REACH.
[2018-07-18 20:00] VITALS: BP 138/74
--- NOTE | 2018-07-18 20:25 | NUR ---
DUE MEDS TAKEN, TOLERATED WELL, ALL NEEDS ATTENDED.
--- NOTE | 2018-07-18 22:35 | NUR ---
PT AWAKE, REQUESTING FOR SNACK, CRACKERS AND JUICE PROVIDED, ALL NEEDS ATTENDED.
[2018-07-19] VITALS (7 sets, daily range): BP systolic 133–171; BP diastolic 73–85
--- NOTE | 2018-07-19 | NUR ---
PT SLEEPING, EASILY AROUSABLE, VITAL SIGNS STABLE, SAT-98%, NO SOB NOTED, CONTINUE TO MONITOR CLOSELY.
--- NOTE | 2018-07-19 04:00 | NUR ---
PT SLEEPING, EASILY AROUSABLE, VITAL SIGNS TAKEN, BP SLIGHTLY ELEVATED, ASYMPTOMATIC, DENIES PAIN, NO SOB NOTED, MONITORED CLOSELY.
--- NOTE | 2018-07-19 07:12 | NUR ---
PT SLEEPING, NO SIGNS OF DISTRESS, BEDSIDE REPORT GIVEN TO HENNY POLO FOR CONTINUITY OF CARE.
--- NOTE | 2018-07-19 07:13 | NUR ---
RECEIVED ENDORSEMENT FROM BONE CHAR KILN OPERATOR NURSE. PATIENT IS ALERT AWAKE AND ORIENTED X4. RESPIRATIONS ARE EVEN AND UNLABORED ON 3L NC. IV IS INTACT, PATENT, AND SL. DENIES ANY PAIN AT THIS TIME. RIGHT ARM AV FISTULA NOTED. PLAN OF CARE REVIEWED WITH PATIENT. PATIENT VERBALIZED UNDERSTANDING. SAFETY MEASURES IN PLACE, BED IS IN LOWEST POSITION, SIDE RAILS X2, CALL LIGHT IS WITHIN REACH. WILL CONTINUE TO MONITOR.
[2018-07-19] MEDS: ALBUTEROL SULFATE/IPRATROPIU 3 ML SOL IH SCH ×3 (07:30→21:41)
[2018-07-19 07:36] LABS: BASOPHILS % (AUTO) 0.4 % (0.0-2.0); EOSINOPHILS % (AUTO) 0.3 % (0.0-4.0); HEMATOCRIT 34.1 % (36-52); HEMOGLOBIN 11.4 g/dL (12.0-18.0); LYMPHOCYTES # (AUTO) 0.6 K/uL (2.0-11.5); LYMPHOCYTES % (AUTO) 7.1 % (20.5-51.1); MEAN CORPUSCULAR HEMOGLOBIN 31 pg (27-31); MEAN CORPUSCULAR HGB CONC 34 g/dL (33-37); MEAN CORPUSCULAR VOLUME 93.5 fL (80-94); MONOCYTES # (AUTO) 0.6 K/uL (0.8-1.0); NEUTROPHILS # (AUTO) 6.6 K/uL (1.8-7.7); NEUTROPHILS % (AUTO) 84.2 % (42.2-75.2); PLATELET COUNT (AUTO) 268 K/uL (140-450); RED BLOOD CELL COUNT(AUTO) 3.64 MIL/uL (4.20-6.10); RED CELL DISTRIBUTION WIDTH 15.5 % (11.6-13.7); WHITE BLOOD COUNT (AUTO) 7.8 K/uL (4.8-10.8)
[2018-07-19 08:15] LABS: T4 (THYROXINE) 6.7 ug/dL (4.5-12.0)
[2018-07-19 08:36] LABS: MAGNESIUM 2.8 mg/dL (1.8-2.4); PHOSPHORUS 8.2 mg/dL (2.5-4.9)
[2018-07-19 08:37] LABS: ANION GAP 18.3 (8-16); CARBON DIOXIDE 29.3 mmol/L (21-32); POTASSIUM 4.6 mmol/L (3.5-5.1)
[2018-07-19 08:42] LABS: CREATININE 7.8 mg/dL (0.7-1.3)
--- NOTE | 2018-07-19 08:45 | NUR ---
LAB CALLED FOR CRITICAL RESULTS. GLUCOSE:42. PATIENT IS ASYMPTOMATIC AND SITTING ON BEDSIDE CHAIR TALKING ON HIS PHONE AT THIS TIME. 1 BOX APPLE JUICE GIVEN AT THIS TIME. WILL NOTIFY MD REGARDING CRITICAL VALUES.
--- NOTE | 2018-07-19 08:50 | NUR ---
GAVE SCHEDULED MEDS. PATIENT DENIES ANY PAIN AT THIS TIME. WILL CONTINUE TO MONITOR.
[2018-07-19] MEDS: LACTULOSE 20 GM/30 ML UDC PO SCH ×2 (08:52→23:04)
[2018-07-19] MEDS: METOPROLOL 25 MG TAB PO SCH (08:52)
--- NOTE | 2018-07-19 08:53 | NUR ---
PATIENT HAS BEEN SCREENED AND CATEGORIZED MODERATE NUTRITION RISK. PATIENT WILL BE SEEN WITHIN 3-5 DAYS OF ADMISSION. 07/20/18ANNE XIONG RD
[2018-07-19] MEDS: ALUMINUM HYD/MAG/SIMETHICONE 30 ML UDC PO SCH ×3 (11:19→23:03)
[2018-07-19] MEDS: SEVELAMER CARBONATE 800 MG TAB PO SCH ×2 (11:20→17:16)
--- NOTE | 2018-07-19 11:23 | NUR ---
ADMINISTERED SCHEDULED MEDICATIONS. PATIENT DENIES ANY PAIN AT THIS TIME. STATES HE FEELS MUCH BETTER. WILL CONTINUE TO MONITOR.
--- NOTE | 2018-07-19 12:02 | NUR ---
CALLED DR. NELSON FOR REPEAT HEMODIALYSIS TODAY CLARIFICATION. PER DR. NELSON, PATIENT TO GET ANOTHER HEMODIALYSIS TODAY AND TO HAVE HEMODIALYSIS NURSE CALL HIM FOR ORDERS. CALLED MS. CORDOBA AND NOTIFIED HER OF PATIENT REQUIRING HEMODIALYSIS TODAY. MS. CORDOBA VERIFIED UNDERSTANDING. WILL CONTINUE TO MONITOR.
--- NOTE | 2018-07-19 12:04 | NUR ---
PARMINDER VIZCAINO OF [facility] CALLED [phone] AND UPDATED HER OF PATIENT STATUS.
[2018-07-19] MEDS ORDERED: HYDRALAZINE HCL PO SCH (13:00)
[2018-07-19] MEDS: FUROSEMIDE 40 MG TAB PO SCH (13:00)
--- NOTE | 2018-07-19 13:16 | NUR ---
RECHECKED BS AT 43., PT ASYMPTOMATIC, SITTING AT BEDSIDE CHAIR WATCHING TV. GAVE 2 APPLE JUICE PER ORDERED. WILL RECHECK BS LATER.
[2018-07-19] MEDS: CALCIUM ACETATE 667 MG TAB PO SCH ×2 (13:32→17:16)
--- NOTE | 2018-07-19 14:43 | NUR ---
PATIENT LEFT FOR CT CHEST ANGIOGRAM. WILL CONTINUE TO MONITOR WHEN PATIENT RETURNS.
--- NOTE | 2018-07-19 15:35 | NUR ---
RECHECKED BS AT 53, PATIENT STILL ASYMPTOMATIC. PATIENT EATING CANDY AT BEDSIDE. MD NOTIFIED. WILL CONTINUE TO MONITOR.
[2018-07-19] MEDS: hydrALAZINE 25 MG TAB PO SCH ×2 (17:00→17:18)
[2018-07-19] MEDS ORDERED: NON-FORMULARY ITEM (Sucroferric Oxyhydroxide (Velphoro) 500 MG) PO SCH (17:00)
--- NOTE | 2018-07-19 17:06 | NUR ---
PATIENT LEFT FOR CT CHEST ANGIOGRAM. BS 51. WILL ADMINISTER D50 UPON RETURN. PATIENT REMAINS ASYMPTOMATIC. WILL CONTINUE TO MONITOR UPON RETURN.
[2018-07-19] MEDS: DEXTROSE 50% 50 ML SYR IVP PRN ×2 (17:17→21:21)
[2018-07-19] MEDS: BLOOD GLUCOSE MONITORING 1 DEV DEV FS SCH ×3 (17:18→21:17)
--- NOTE | 2018-07-19 17:27 | NUR ---
D50 GIVEN FOR A BS OF 51. REMOVED IV LINE D/T INFILTRATION,MINIMAL BLOOD AND LUMEN COMPLETELY INTACT. NEW IV LINE INSERTED ON LEFT FA. PATIENT TOLERATED WELL. WILL CONTINUE TO MONITOR.
--- NOTE | 2018-07-19 17:51 | NUR ---
UPON REASSESMENT, BS NOW 73. WILL CONTINUE TO MONITOR.
--- NOTE | 2018-07-19 19:25 | NUR ---
GAVE ENDORSEMENT TO EXHIBITS CURATOR NURSE FOR CONTINUITY OF CARE. PATIENT IS STABLE.
--- NOTE | 2018-07-19 19:26 | NUR ---
RECEIVED REPORT FROM AM NURSE, CHRIST. PT SITTING IN BED, AWAKE, ALERT, ORIENTED X 4. SIERRA LEONEAN SPEAKING, FAMILY AT BEDSIDE. PT STILL HAS SOB, O2 3L N.C. O2 SAT 93% AT THIS TIME. ON TELE MONITOR, ELECTRODES IN PLACE. LT FA 20G HEP LOCKED. PT HAS HD ACCESS ON RT UPPER ARM, AV SHUNT. HD NURSE AT BEDSIDE, JUST CAME IN AND GETTING ORDER FOR DIALYSIS FROM DR. NELSON. BED IN LOW POSITION, CALL LIGHT WITH IN REACH. WILL CONTINUE TO MONITOR.
--- NOTE | 2018-07-19 20:06 | NUR ---
BLOOD SUGAR WAS CHKECKED AND RESULT 67. PT IS AWAKE, ALERT AND ORIENTED X4. DR. PRUITT MADE AWARE AND SHE SAID TO GIVE JUICE FIRST AN DTO RECHECK BS AGAIN . WILL CONTINUE TO MONITOR.
--- NOTE | 2018-07-19 21:21 | NUR ---
BLOOD SUGAR RECHECKED. PTS BLOOD SUGAR 54 AT THIS TIME. PT RECEIVED D50 PER ORDERS. TOLERATED WELL. WILL CONTINUE TO MONITOR.
--- NOTE | 2018-07-19 21:50 | NUR ---
PT HAS SOB , O2 SAT ONLY 87%-89% WITH O23L/NC. REPOSITIONED PT LIKE SITTING UP ON BED. PAGED RT, ROBERTA CAME AND GAVE BREATHING TREATMENT. PT SEEMS COMFORTABLE AT THIS TIME. O2 SAT NOW 96% WITH O2 4L/NC. WILL CONTINUE TO MONITOR.
[2018-07-19] MEDS: NIFEdipine 60 MG TABER PO SCH (23:02)
[2018-07-19 23:23] LABS: ANION GAP 14.5 (8-16); POTASSIUM 3.5 mmol/L (3.5-5.1)
--- NOTE | 2018-07-19 23:27 | NUR ---
LAB CALLED FOR GLUCOSE S6DOTRY OF 41 AND CREATININE 4.4 .DR PRUITT MADE AWARE. SHE SAID SHE WILL SEE PT. FOR THE CREATININE , PT JUST HAD HD EARLIER AND RESULT IS TRENDING DOWN.
[2018-07-19 23:28] LABS: CREATININE 4.4 mg/dL (0.7-1.3)
--- NOTE | 2018-07-19 23:45 | NUR ---
DR. PRUITT CAME AND CHECKED ON PT. BLOOD SUGAR WAS CHECKED AGAIN PER DR. PRUITT. BS 49. PT IS AWAKE,ALERT AND ORIENTED X4, AMBULATED TO ROOM . HAD SOME POPSICLE AND PUDDING. WILL CONTINUE TO MONITOR.
[2018-07-20] VITALS (7 sets, daily range): BP systolic 83–151; BP diastolic 43–81
--- NOTE | 2018-07-20 00:15 | NUR ---
DR. PRUITT CAME BACK AND SAID PT HAS TO HAVE CT CHEST AND ABDOMINAL XR TONIGHT. Addendum: 07/20/18 at 0108 by Bonny Burden RN THE ORDER IS US CHEST NOT CT CHEST WITH IS STAT AND US ABDOMEN IS ROUTINE.
--- NOTE | 2018-07-20 00:51 | NUR ---
TALKED TO DR. PRUITT AGAIN ABOUT THE BLOOD SUGAR LATEST 40. SHE SAID TO GIVE ANOTHER D50 IVP NOW.
[2018-07-20] MEDS: DEXTROSE 50% 50 ML SYR IVP PRN ×3 (00:52→15:00)
--- NOTE | 2018-07-20 01:16 | NUR ---
STAT US CHEST DONE AT BEDSIDE. WILL FOLLOW UP RESULT
--- NOTE | 2018-07-20 02:00 | NUR ---
RECHECKED PTS BLOOD GLUCOSE. BLOOD GLUCOSE [address] PRUITT CONTACTED REGARDING PT BLOOD GLUCOSE READING. DR. GARAY WILL COME SEE PT.
--- NOTE | 2018-07-20 04:03 | NUR ---
RECHECKED PT BLOOD GLUCOSE. BLOOD GLUCOSE [address] PRUITT REGARDING GLUCOSE READING. SAID TO ADMINISTER D50. WILL CONTINUE TO MONITOR.
[2018-07-20] MEDS: ALUMINUM HYD/MAG/SIMETHICONE 30 ML UDC PO SCH ×5 (04:10→17:31)
[2018-07-20] MEDS ORDERED: DEXT 5% /NACL 0.9% 1,000 ML IV SCH (05:25)
[2018-07-20] MEDS: BLOOD GLUCOSE MONITORING 1 DEV DEV FS SCH ×3 (05:56→20:49)
--- NOTE | 2018-07-20 05:57 | NUR ---
BLOOD SUGAR AT THIS TOME 50. PT HAS BEEN AWAKE, ALERT AND ORIENTED X4. KEPT NPO FOR US ABDOMEN THIS AM.DR. PRUITT,RESIDENT AWARE. WILL START IVF D5NS @20 ML /HR. WILL CONTINUE TO MONITOR.
[2018-07-20] MEDS: ALBUTEROL SULFATE/IPRATROPIU 3 ML SOL IH SCH ×3 (06:38→19:57)
--- NOTE | 2018-07-20 07:15 | NUR ---
ENDORSED PT TO AM NURSE MARIANO IN STABLE CONDITION.
--- NOTE | 2018-07-20 07:17 | NUR ---
RECEIVED BEDSIDE REPORT FROM VP INFORMATION TECHNOLOGY NURSE FOR CONTINUITY OF CARE. PATIENT IS RESTING ON BED AT THIS TIME. PATIENT IS AOX4, TO NAME, PLACE, DATE AND TIME. SPEAKING TAJIK. ABLE TO MAKE NEEDS KNOWN AND ABLE TO FOLLOW TO FOLLOW COMMANDS. RESPIRATION EVEN AND UNLABORED. LUNG SOUNDS CLEAR ON AUSCULTATION. ON 3LPM VIA NC. DENIES PAIN AND SOB. NO SIGNS OF DISTRESS NOTED. IV ON LFA 20G, INTACT AND DRY, INFUSING PER MD ORDER. R UPPER AV SHUNT NOTED. SIGN FOR NO VENIPUNCTURE AND BP ON R ARM POSTED. SKIN INTACT AND DRY. ABLE TO AMBULATE AND CONTINENT. DISCUSSED PLAN OF CARE WITH PATIENT, AND PATIENT VERBALIZED UNDERSTANDING. BED IN LOW POSITION AND CALL LIGHT WITHIN REACH. INSTRUCTED PATIENT TO USE THE CALL LIGHT FOR ANY ASSISTANCE AND PATIENT WAS AWARE.
[2018-07-20] MEDS ORDERED: VIT-B COMP/VIT-C/FOLIC ACID 1 TAB PO SCH (08:00)
[2018-07-20 08:01] LABS: BASOPHILS % (AUTO) 0.5 % (0.0-2.0); EOSINOPHILS # (AUTO) 0.2 K/uL (0-0.4); EOSINOPHILS % (AUTO) 2.2 % (0.0-4.0); HEMATOCRIT 33.9 % (36-52); HEMOGLOBIN 11.4 g/dL (12.0-18.0); LYMPHOCYTES # (AUTO) 1.1 K/uL (2.0-11.5); LYMPHOCYTES % (AUTO) 13.7 % (20.5-51.1); MEAN CORPUSCULAR HEMOGLOBIN 32 pg (27-31); MEAN CORPUSCULAR HGB CONC 34 g/dL (33-37); MEAN CORPUSCULAR VOLUME 94.6 fL (80-94); MONOCYTES # (AUTO) 1.1 K/uL (0.8-1.0); MONOCYTES % (AUTO) 13.4 % (1.7-9.3); NEUTROPHILS # (AUTO) 5.8 K/uL (1.8-7.7); NEUTROPHILS % (AUTO) 70.2 % (42.2-75.2); PLATELET COUNT (AUTO) 261 K/uL (140-450); RED BLOOD CELL COUNT(AUTO) 3.58 MIL/uL (4.20-6.10); RED CELL DISTRIBUTION WIDTH 15.5 % (11.6-13.7); WHITE BLOOD COUNT (AUTO) 8.3 K/uL (4.8-10.8)
[2018-07-20] MEDS: DEXTROSE 10% 1,000 ML IV SCH (08:03)
[2018-07-20] MEDS: SEVELAMER CARBONATE 800 MG TAB PO SCH ×3 (08:04→17:32)
[2018-07-20] MEDS: METOPROLOL SUCCINATE 50 MG TABER PO SCH (08:06)
[2018-07-20] MEDS: LOSARTAN 50 MG TAB PO SCH (08:06)
--- NOTE | 2018-07-20 08:12 | NUR ---
STARTED NEW IVF D10NS PER MD ORDER, INFUSING AT 20ML/HR. NO SIGNS OF DISTRESS NOTED. PATIENT IS SITTING UP ON BED AND EATING BREAKFAST. TELE MONITOR ATTACHED. BED IN LOW POSITION, AND CALL LIGHT WITHIN REACH.
--- NOTE | 2018-07-20 08:40 | NUR ---
DR NELSON IS AT BEDSIDE AND ASSESSING THE PATIENT. NO SIGNS OF DISTRESS NOTED. BED IN LOW POSITION AND CALL LIGHT WITHIN REACH. TELE MONITOR ATTACHED.
[2018-07-20] MEDS: CALCIUM ACETATE 667 MG TAB PO SCH ×3 (10:01→17:32)
[2018-07-20] MEDS: VIT-B COMP/VIT-C/FOLIC ACID 1 TAB PO SCH (10:01)
[2018-07-20 10:02] LABS: CARBON DIOXIDE 29.1 mmol/L (21-32); POTASSIUM 4.1 mmol/L (3.5-5.1)
[2018-07-20] MEDS: FUROSEMIDE 40 MG TAB PO SCH ×2 (10:02→13:00)
[2018-07-20] MEDS: NIFEdipine 60 MG TABER PO SCH ×2 (10:02→21:00)
[2018-07-20] MEDS: hydrALAZINE 25 MG TAB PO SCH ×3 (10:02→17:00)
[2018-07-20] MEDS: LACTULOSE 20 GM/30 ML UDC PO SCH ×2 (10:02→21:08)
[2018-07-20 10:04] LABS: CREATININE 5.5 mg/dL (0.7-1.3)
--- NOTE | 2018-07-20 10:08 | NUR ---
RECEIVED CRITICAL FROM LAB FOR GLUCOSE 48 AND CREATININE 5.3. NOTIFIED DR MALIK AND DR MARIE AWARE.
--- NOTE | 2018-07-20 10:25 | NUR ---
CALLED DIALYSIS NURSE AND SPOKE TO ADALID, NOTIFIED ADALID THAT PATIENT HAS AN ORDER FOR DIALYSIS TODAY FROM DR NELSON. ADALID WAS AWARE.
[2018-07-20 10:32] LABS: MAGNESIUM 2.4 mg/dL (1.8-2.4); PHOSPHORUS 5.5 mg/dL (2.5-4.9)
--- NOTE | 2018-07-20 10:55 | NUR ---
OBTAINED CONSENT FOR THORACENTESIS VIA DIGITAL ASSET SPECIALIST SERVICES. RIVETING MACHINE OPERATOR TAPE CONTROL MOOSE #[id number]. PATIENT WAS AWARE AND HAS AUTHORIZED THE PROCEDURE.
--- NOTE | 2018-07-20 11:56 | NUR ---
ADMINISTERED MEDS PER MD ORDER, PATIENT IS TOLERATED WELL. PATIENT IS SITTING UP ON THE EDGE OF BED. SAID HE FEELS SOB. DIMINISHED LUNGS SOUNDS ON AUSCULTATION, SPO2 IS 95% WITH 3LPM VIA NC. EDUCATED PATIENT TO USE THE INCENTIVE SPIROMETER AND ENCOURAGE PATIENT TO USE IT WHEN HE IS AWAKE AND TOLERATED. PATIENT SAID OK. BED IN LOW POSITION AND CALL LIGHT WITHIN REACH. INSTRUCTED PATIENT TO USE THE CALL LIGHT FOR ANY ASSISTANCE AND PATIENT WAS AWARE.
--- NOTE | 2018-07-20 13:45 | NUR ---
1300 MEDS NOT GIVEN DUE TO PATIENT WILL GETTING DIALYSIS.
--- NOTE | 2018-07-20 14:00 | NUR ---
DR HERNANDEZ REMOVED 1950 ML FROM THE THORACENTESIS. PATIENT TOLERATED WELL. NO SIGNS OF DISTRESS NOTED. INFORMED DR BANUELOS THAT THORACENTESIS COLLECTED 1950 ML AND WAS AWARE. DELIVERED LUNG FLUID TO LAB PER MD ORDER.
--- NOTE | 2018-07-20 14:06 | NUR ---
DIALYSIS NURSE DANICA IS AT BEDSIDE. PATIENT IS GETTING READY FOR DIALYSIS. NO SIGNS OF DISTRESS NOTED.
--- NOTE | 2018-07-20 15:07 | NUR ---
CHECKED GLUCOSE AND RECEIVED 39. NOTIFIED DR BANUELOS AND PER DR MAXWELL. PER DR MAXWELL, ADMINISTER 50% DEXTROSE VIA IVP AND RECHECK BLOOD GLUCOSE. ADMINISTERED 50% DEXTROSE. PATIENT TOLERATED WELL. AROUSABLE TO VOICE AND ABLE COMMUNICATE APPROPRIATELY. DIALYSIS NURSE DANICA IS AT BEDSIDE AND PATIENT IS GETTING DIALYSIS TREATMENT AT THIS MOMENT. SAFETY MEASURES IN PLACE. TELE MONITOR ATTACHED.
--- NOTE | 2018-07-20 15:40 | NUR ---
RECHECK BLOOD GLUCOSE AND RECEIVED 130. DIALYSIS NURSE DANICA HAS STOP THE DIALYSIS TREATMENT DUE TO LOW BLOOD PRESSURE 75/43. NOTIFIED DR MAXWELL ON ABOVE CONDITION AND DR MAXWELL WAS AWARE.
--- NOTE | 2018-07-20 15:45 | NUR ---
PER DIALYSIS NURSE, DIALYSIS STOPPED DUE TO LOW BP 64/40, PT AWAKE, RESTLESS,C/O HEADACHE, DR MURRAY MADE AWARE, DR NELSON PAGED PER DR MURRAY.
--- NOTE | 2018-07-20 16:00 | NUR ---
PT MORE CONFUSED, TRYING TO GET OUT OF BED, BP REMAINS LOW 59/34, HR 80, RR 20, O2 SAT 99% WITH 3L O2, DR BANUELOS CALLED TO BEDSIDE FOR EVAL.
--- NOTE | 2018-07-20 16:06 | NUR ---
DR MURRAY AT [facility]
--- NOTE | 2018-07-20 16:12 | NUR ---
NS BOLUS 500ML STARTED PER DR MAXWELL
--- NOTE | 2018-07-20 16:15 | NUR ---
RADIOLOGY AT BEDSIDE FOR STAT CXR
--- NOTE | 2018-07-20 16:25 | NUR ---
PT MORE AWAKE NOW WANTS GO TO BATHROOM, OFFERED BEDPAN BUT DOES NOT WANT TO USE IT NOW, BP76/42, HR 80, O2 SAT 96% PT TALKING WITH HIS SON ON THE PHONE, PT EDUCATED NOT TO GET UP OUT OF BED AT THIS TIME.
--- NOTE | 2018-07-20 16:39 | NUR ---
500ML BOLUS COMPLETED, BP 80/40, HR 81, O2 SAT 96, DR MAXWELL MADE AWARE.
--- NOTE | 2018-07-20 16:44 | NUR ---
BLOOD SUGAR 108 NOW
--- NOTE | 2018-07-20 17:35 | NUR ---
HOLD B/P MEDICINE HYDRALAZINE DUE TO LOW B/P. PATIENT IS TALKING TO CASSANDRA ELIZONDO AT BEDSIDE. SAFETY MEASURES IN PLACE. TELE MONITOR IN PLACE.
--- NOTE | 2018-07-20 17:49 | NUR ---
2ND 500ML BOLUS DONE, BP 82/56, HR 82, RR 22, O2 SAT 98%, DR BANUELOS MADE AWARE, PT AWAKE, TALKING WITH FAMILY, DR BANUELOS ORDERED MIDODRIN.
[2018-07-20] MEDS: MIDODRINE 5 MG TAB PO SCH (18:00)
--- NOTE | 2018-07-20 18:00 | NUR ---
10MG MIDODRIN GIVEN PER ORDER
--- NOTE | 2018-07-20 18:55 | NUR ---
BP 88/47, HR 78, RR 22, PT STILL STATES HE DOES NOT FEEL GOOD, DR PRUITT CALLED TO BEDSIDE FOR EVAL.
[2018-07-20] MEDS ORDERED: NOREPINEPHRINE 16 MG in DEXTROSE 5% 250 ML IV PRN (19:10)
[2018-07-20] MEDS ORDERED: ALBUMIN HUMAN 5 % 250 ML IV ONE ×2 (19:35→20:36)
--- NOTE | 2018-07-20 20:00 | NUR ---
TRANSFERRED PATIENT TO ICU AND REPORT GIVEN TO YASSINE INMAN. CASSANDRA ELIZONDO AND ROHAN ARE AT BESIDE.
--- NOTE | 2018-07-20 20:00 | NUR ---
PATIENT TRANSFERRED FROM [facility], AAO X 4, ABLE TO MAKE NEEDS KNOWN. BILATERAL LUNGS SOUND DIMINISHED O2 3L/M VIA NC. SR ON THE MONITOR WITH HR 98. NO ACUTE DISTRESS NOTED AT THIS TIME. PERIPHERAL LINE TO LEFT FOREARM 20G NOTED WITH DEXTROSE 10% 40ML/HR. HEMODIALYSIS ACCESS FISTULA TO RIGHT UPPER ARM, NO S/S OF INFECTION, BRUIT AND THRILL NOTED. ACTIVE BOWEL SOUND FROM ALL 4 QUADS. SKIN IS WARM TO TOUCH AND INTACT. HOB ELEVATED OVER 30 DEGREE. BED IN LOW POSITION. CALL LIGHT WITHIN REACH. WILL CONTINUE TO MONITOR.
[2018-07-20] MEDS: ALUMINUM HYDROXIDE 64 MG/ML BOTTLE PO SCH (20:27)
--- NOTE | 2018-07-20 21:00 | NUR ---
ADMINISTERED SCHEDULED MEDICATIONS ORDERED, PATIENT TOLERATED WELL. NO ACUTE DISTRESS NOTED. COMPLAINT OF LOWER BACK PAIN 09/22, ADMINISTERED PAIN MEDICATION ORDERED. BS CHECKED 161 NOTED. WILL CONTINUE TO MONITOR.
[2018-07-20] MEDS: HYDROcodone/APAP 7.5/325 MG 1 TAB PO PRN (21:07)
--- NOTE | 2018-07-20 22:30 | NUR ---
DR. PRUITT AT BEDSIDE TO CHECK THE PATIENT. WILL FOLLOW ORDERS.
[2018-07-21] VITALS (12 sets, daily range): BP systolic 94–137; BP diastolic 54–78
[2018-07-21] MEDS: ALUMINUM HYDROXIDE 64 MG/ML BOTTLE PO SCH ×4 (00:58→13:01)
--- NOTE | 2018-07-21 01:20 | NUR ---
PATIENT IN ASLEEP AT THIS TIME, NO ACUTE DISTRESS NOTED. DENIES ANY PAIN. VSS. WILL CONTINUE TO MONITOR.
--- NOTE | 2018-07-21 03:30 | NUR ---
PATIENT IN ASLEEP. NO ACUTE DISTRESS NOTED. DENIES PAIN. VSS. WILL CONTINUE TO MONITOR.
--- NOTE | 2018-07-21 05:00 | NUR ---
DR. MALIK AT BEDSIDE TO CHECK THE PATIENT, UPDATES GIVEN. RECEIVED D10% 20 ML/HR. CARRIED OUT.
[2018-07-21 05:30] LABS: ANION GAP 13.1 (8-16); CARBON DIOXIDE 28.7 mmol/L (21-32); POTASSIUM 4.8 mmol/L (3.5-5.1)
[2018-07-21 05:38] LABS: MAGNESIUM 2.7 mg/dL (1.8-2.4); PHOSPHORUS 5.3 mg/dL (2.5-4.9)
[2018-07-21 05:56] LABS: CREATININE 6.1 mg/dL (0.7-1.3)
--- NOTE | 2018-07-21 06:10 | NUR ---
AT BEDSIDE TO CHECK THE PATIENT, WILL FOLLOW THE ORDERS. BS CHECKED 102 NOTED. WILL CONTINUE TO MONITOR.
[2018-07-21] MEDS: BLOOD GLUCOSE MONITORING 1 DEV DEV FS SCH ×4 (06:37→20:45)
[2018-07-21 06:40] LABS: HEMATOCRIT 20.7 % (36-52); MEAN CORPUSCULAR HEMOGLOBIN 32 pg (27-31); MEAN CORPUSCULAR HGB CONC 34 g/dL (33-37); MEAN CORPUSCULAR VOLUME 94.8 fL (80-94); PLATELET COUNT (AUTO) 248 K/uL (140-450); RED BLOOD CELL COUNT(AUTO) 2.19 MIL/uL (4.20-6.10); RED CELL DISTRIBUTION WIDTH 16.6 % (11.6-13.7); WHITE BLOOD COUNT (AUTO) 8.1 K/uL (4.8-10.8)
[2018-07-21] MEDS: ALBUTEROL SULFATE/IPRATROPIU 3 ML SOL IH SCH ×3 (06:46→22:27)
--- NOTE | 2018-07-21 06:55 | NUR ---
RECEIVED ORDERS FROM . 2 PACKS OF RBCS, STAT CHEST X-RAY. CARRIED OUT.
--- NOTE | 2018-07-21 07:15 | NUR ---
OBTAINED REPORT FROM CHEMICAL PUMPER NURSE AT BEDSIDE, PT IS AAOX4, CHINESE SPEAKING, ABLE TO FOLLOW COMMANDS AND MAKE NEEDS KNOWN, DENIES PAIN, VSS, NO S/S OF DISTRESS, CLEAR LUNG SOUND TO LEFT CHEST, DIMINISHED LUNG SOUND TO RIGHT CHEST NOTED, ON O2 AT 3L VIA NC, O2 SAT AT 100 %, DENIES CHEST PAIN, SR ON MOBILE UI DEVELOPER, SOFT ABDOMEN WITH ACTIVE BOWEL SOUNDS, CONTINENT WITH B&B'S, SKIN IS WARM AND DRY TO TOUCH, ABLE TO MOVE ALL EXTREMITIES, IV SITE TO LEFT FOREARM, 20GA, PATENT, RUNNING D10 AT 20ML/HR. HOB ELEVATED TO 30 DEGREES, SAFETY MEASURE CHECKED, CALL LIGHT WITHIN REACH, WILL CONTINUE TO MONITOR.
[2018-07-21] MEDS: MIDODRINE 5 MG TAB PO SCH (07:25)
--- NOTE | 2018-07-21 07:46 | NUR ---
CONSENT OBTAINED FROM PT FOR US GUIDED PIGTAIL INSERTION.
[2018-07-21 08:07] LABS: BASOPHILS % (MANUAL) 1 % (0-2); EOSINOPHILS % (MANUAL) 2 % (0-4); LYMPHOCYTES % (MANUAL) 16 % (20-46); MONOCYTES % (MANUAL) 13 % (5-12)
[2018-07-21] MEDS: LACTULOSE 20 GM/30 ML UDC PO SCH ×2 (08:12→20:40)
[2018-07-21] MEDS: hydrALAZINE 25 MG TAB PO SCH ×3 (08:14→17:00)
[2018-07-21] MEDS: SEVELAMER CARBONATE 800 MG TAB PO SCH ×3 (08:15→17:25)
[2018-07-21] MEDS: DEXTROSE 10% 1,000 ML IV SCH (08:16)
[2018-07-21] MEDS: NIFEdipine 60 MG TABER PO SCH ×2 (08:16→20:41)
[2018-07-21] MEDS: LOSARTAN 50 MG TAB PO SCH (08:16)
[2018-07-21] MEDS: CALCIUM ACETATE 667 MG TAB PO SCH ×3 (08:17→17:25)
[2018-07-21] MEDS: FUROSEMIDE 40 MG TAB PO SCH ×2 (08:17→12:51)
[2018-07-21] MEDS: METOPROLOL SUCCINATE 50 MG TABER PO SCH (08:17)
[2018-07-21] MEDS: VIT-B COMP/VIT-C/FOLIC ACID 1 TAB PO SCH (08:17)
[2018-07-21] MEDS ORDERED: PROBIOTIC SCREEN 1 EA MISC MC PRN (08:25)
--- NOTE | 2018-07-21 08:30 | NUR ---
SPOKE US TECH, THE PROCEDURE FOR PIGTAIL INSERTION WILL DO AT OR THIS AFTERNOON AROUND 3 PM, PT IS OK TO HAVE BREAKFAST.
--- NOTE | 2018-07-21 08:40 | NUR ---
DR. NELSON CAME IN TO SEE PT AT BEDSIDE, FIND OUT PT IS JEHOVAH WITNESS AND REFUSED BLOOD TRANSFUSION, DR. SOSA ALSO AWARE, WILL FOLLOW UP WITH NEW ORDERS.
--- NOTE | 2018-07-21 09:00 | NUR ---
PT VOMITED ALL THE FOOD THAT HE ATE 30 MINS AGO, DR. SOSA MADE AWARE, ZOFRAN GIVEN, WILL CONTINUE TO MONITOR.
--- NOTE | 2018-07-21 10:00 | NUR ---
PT IS ASLEEP IN BED, NO S/S OF DISTRESS, WILL CONTINUE TO MONITOR.
--- NOTE | 2018-07-21 12:00 | NUR ---
PT IS RESTING IN BED, NO S/S OF DISTRESS, VSS, DENIES PAIN.
--- NOTE | 2018-07-21 13:37 | NUR ---
07/21/18 RD INITIAL ASSESSMENT COMPLETED PLEASE REFER TO NUTRITION ASSESSMENT UNDER CARE ACTIVITY FOR ESTIMATED NUTRITIONAL NEEDS. 1. CONTINUE RENAL DIET WITH 1 LITER OF FLUID RESTRICTION TOLERATED 2. RD WILL PROVIDE NUTRITION EDUCATION ON RENAL DIET DURING FOLLOW UP VISIT 3. RD TO FOLLOW-UP 2-3 DAYS, HIGH RISK ANNE XIONG, VIVI
--- NOTE | 2018-07-21 14:00 | NUR ---
NO S/S OF DISTRESS, RESTING IN BED, VSS, DENIES PAIN, POSITION CHANGED FOR COMFORT.
[2018-07-21 14:27] LABS: BASOPHILS # (AUTO) 0.1 K/uL (0.00-0.22); BASOPHILS % (AUTO) 1.4 % (0.0-2.0); EOSINOPHILS # (AUTO) 0.2 K/uL (0-0.4); EOSINOPHILS % (AUTO) 2.8 % (0.0-4.0); HEMATOCRIT 20.1 % (36-52); LYMPHOCYTES # (AUTO) 1.5 K/uL (2.0-11.5); LYMPHOCYTES % (AUTO) 16.9 % (20.5-51.1); MEAN CORPUSCULAR HEMOGLOBIN 32 pg (27-31); MEAN CORPUSCULAR HGB CONC 34 g/dL (33-37); MEAN CORPUSCULAR VOLUME 95.1 fL (80-94); MONOCYTES # (AUTO) 0.9 K/uL (0.8-1.0); MONOCYTES % (AUTO) 10.1 % (1.7-9.3); NEUTROPHILS # (AUTO) 6.1 K/uL (1.8-7.7); NEUTROPHILS % (AUTO) 68.8 % (42.2-75.2); PLATELET COUNT (AUTO) 270 K/uL (140-450); RED BLOOD CELL COUNT(AUTO) 2.11 MIL/uL (4.20-6.10); RED CELL DISTRIBUTION WIDTH 16.2 % (11.6-13.7); WHITE BLOOD COUNT (AUTO) 8.8 K/uL (4.8-10.8)
[2018-07-21 14:34] LABS: HEMOGLOBIN 6.8 g/dL (12.0-18.0)
--- NOTE | 2018-07-21 14:35 | NUR ---
PT IS TAKEN BY OR STAFF FOR PROCEDURE AT THIS TIME.
[2018-07-21] MEDS ORDERED: fentaNYL 0.05 MG/ML VIAL ONE (14:38)
[2018-07-21] MEDS ORDERED: MIDAZOLAM 2 MG/2 ML VIAL ONE (14:38)
[2018-07-21 14:42] LABS: PROTHROMBIN TIME 10.2 secs (10.8-13.4)
--- NOTE | 2018-07-21 17:00 | NUR ---
PT IS BACK TO UNIT S/P PIGTAIL TO RIGHT CHEST DRAIN VIA GRAVITY, AAOX4, VSS, DENIES PAIN, NO S/S OF DISTRESS, POSITION FOR COMFORT, HD NURSE AT BEDSIDE, WILL START HD. DR. SHEILA MOREIRA.
--- NOTE | 2018-07-21 19:15 | NUR ---
REPORT GIVEN TO PHYSICAL SCIENCE AIDE NURSE AT BEDSIDE FOR CONTINUE OF CARE, PT IS STILL ON HD, VSS, NO S/S OF DISTRESS.
--- NOTE | 2018-07-21 19:45 | NUR ---
REPORT RECEIVED FROM DAY SHIFT NURSESYL RN FOR CONTINUITY OF CARE. FULL CODE. NKDA. INITIAL VITAL SIGNS: HR 93, BP 119/59, RR 14, SPO2 90% ON NC @ 3LPM, TEMP 99.3 TEMPORAL ARTERY. PT A&OX4. PT REPORTS NO PAIN OR DISCOMFORT. PT'S PUPILS, LEFT AND RIGHT, 3MM PERRLA, TRACK APPROPRIATELY. NSR ON MONITOR. 20G PIV LEFT FOREARM RUNNING D10 AT 20 ML/HR. PALPABLE PULSES (RADIAL, POSTERIOR TIBIAL, DORSALIS PEDIS). GINI FISTULA (PT CURRENTLY RECEIVING HD TREATMENT). PATENT AIRWAY. HYPER-RESONANT BREATH SOUNDS ON RIGHT SIDE, EXPIRATORY WHEEZING ON LEFT SIDE. CHEST EXPANDS SYMMETRICALLY. BOWEL SOUNDS HYPOACTIVE. RENAL DIET. SURGICAL INCISION WITH PIGTAIL CHEST DRAIN ON RIGHT ABD DRAINING SANGUINOUS FLUID. SAFETY PRECAUTIONS IN PLACE. BED IN LOWEST POSITION.
[2018-07-21] MEDS: HYDROcodone/APAP 7.5/325 MG 1 TAB PO PRN (20:24)
--- NOTE | 2018-07-21 21:00 | NUR ---
PER SLAUGHTERER RELIGIOUS RITUAL, DIALYSIS PT USUALLY GETS CT WITH CONTRAST PRIOR TO DIALYSIS. CHECKING WITH DR. PRUITT ON HOW TO PROCEED, IF PROCEDURE IS STILL TO BE DONE D/T PT ALREADY HAD DIALYSIS TODAY. PER DR. PRUITT DO THE PROCEDURE.
--- NOTE | 2018-07-21 21:40 | NUR ---
RECEIVED A CALL FROM DR. PULIDO; PER DR. PULIDO CONNECT THE CHEST TUBE TO SUCTION.
--- NOTE | 2018-07-21 22:00 | NUR ---
DR. PRUITT AT BEDSIDE COMPLETING INFORMED CONSENT FOR CTA CHEST.
--- NOTE | 2018-07-21 22:37 | NUR ---
RECEIVED PATIENT ON 4L NC, PULSE OX SAT 98%. SCHEDULED BREATHING TREATMENT ADMINISTERED. TOLERATED TX WELL, NO ADVERSE SIDE EFFECTS. NO RESPIRATORY DISTRESS NOTED AT THIS TIME. WILL CONTINUE TO MONITOR.
--- NOTE | 2018-07-21 23:28 | NUR ---
RECEIVED A CALL FROM RADIOLOGY DEPARTMENT, SPOKE WITH GILBERT. WANTING TO CLARIFY IF DOCTOR STILL WANT PT TO HAVE THE IMAGING DONE D/T PROCEDURE INVOLVES CONTRAST USAGE AND PT HAS ESRD. TRANSFERRED THE CALL TO DR. PRUITT.
[2018-07-22] VITALS (12 sets, daily range): BP systolic 97–141; BP diastolic 46–79
--- NOTE | 2018-07-22 00:12 | NUR ---
RECEIVED A CALL FROM DR. FLORES, ACCORDING TO HIM PT NEEDS TO BE SCHEDULED FOR DIALYSIS FIRST BEFORE THE CT ANGIO WITH CONTRAST. ORDER ON HOLD AT THIS TIME.
--- NOTE | 2018-07-22 01:07 | NUR ---
TITRATED OXYGEN TO 3L NC, PULSE OX SAT 98%. RN NOTIFIED. WILL CONTINUE TO MONITOR.
--- NOTE | 2018-07-22 02:15 | NUR ---
PT RESTING COMFORTABLY. NO SIGNS OF DISTRESS OR PAIN.
--- NOTE | 2018-07-22 03:05 | NUR ---
TITRATED OXYGEN TO 4L NC, PULSE OX SAT 87%. WILL CONTINUE TO MONITOR.
--- NOTE | 2018-07-22 04:40 | NUR ---
OFFERED MORNING CARE TO PT AND REFUSED AT THIS TIME.
[2018-07-22 05:19] LABS: BASOPHILS # (AUTO) 0.1 K/uL (0.00-0.22); BASOPHILS % (AUTO) 1.7 % (0.0-2.0); EOSINOPHILS # (AUTO) 0.3 K/uL (0-0.4); EOSINOPHILS % (AUTO) 3.2 % (0.0-4.0); HEMATOCRIT 20.9 % (36-52); HEMOGLOBIN 7.1 g/dL (12.0-18.0); LYMPHOCYTES # (AUTO) 1.4 K/uL (2.0-11.5); MEAN CORPUSCULAR HEMOGLOBIN 32 pg (27-31); MEAN CORPUSCULAR HGB CONC 34 g/dL (33-37); MEAN CORPUSCULAR VOLUME 94.5 fL (80-94); MONOCYTES % (AUTO) 12.2 % (1.7-9.3); NEUTROPHILS # (AUTO) 5.1 K/uL (1.8-7.7); NEUTROPHILS % (AUTO) 64.9 % (42.2-75.2); PLATELET COUNT (AUTO) 296 K/uL (140-450); RED BLOOD CELL COUNT(AUTO) 2.22 MIL/uL (4.20-6.10); RED CELL DISTRIBUTION WIDTH 16.9 % (11.6-13.7); WHITE BLOOD COUNT (AUTO) 7.8 K/uL (4.8-10.8)
[2018-07-22 05:46] LABS: ANION GAP 11.8 (8-16); CARBON DIOXIDE 31.5 mmol/L (21-32); POTASSIUM 4.3 mmol/L (3.5-5.1)
[2018-07-22 05:47] LABS: CREATININE 4.7 mg/dL (0.7-1.3)
--- NOTE | 2018-07-22 06:33 | NUR ---
DR. MALIK AT BEDSIDE TO SEE PT. INFORMED HER REGARDING PT'S CONDITION. INFORMED HER TOO THAT CT ANGIO WAS ALREADY DISCUSSED BY DR. PRUITT WITH THE RADIOLOGY DEPARTMENT AND WAS CURRENTLY ON HOLD AT THIS TIME. PER DR. MALIK SHE STILL WANTS IT TO BE DONE. INFORMED HER TO SPEAK WITH THE RADIOLOGY DEPARTMENT TO CLARIFY THIS ISSUE. WILL ENDORSE TO THE NEXT SHIFT TO FOLLOW-UP.
[2018-07-22] MEDS: BLOOD GLUCOSE MONITORING 1 DEV DEV FS SCH ×4 (06:44→21:00)
--- NOTE | 2018-07-22 07:25 | NUR ---
REPORT GIVEN TO MORNING RN, BARBER, FOR CONTINUITY OF CARE. VS STABLE AT THIS TIME. ENDORSED PT'S CELLPHONE THAT IS AT BEDSIDE . ALSO INFORMED HER REGARDING THE ISSUE WITH THE CT ORDERED.
--- NOTE | 2018-07-22 07:25 | NUR ---
RECEIVED REPORT FROM CANCER REGISTRY MANAGER RN. PT RESTING IN BED. A/OX4. FOLLOWS COMMANDS. SKIN DRY AND WARM TO TOUCH. PUPILS REACTIVE TO LIGHT. ON O2 AT 2 LTR/MIN VIA NC. SPO2 100%. SR ON MONITOR. LUNGS CLEAR. CHEST TUBE NOTED ON RIGHT LOWER CHEST ON CONTINUOUS LOW SUCTION, SECURED WITH DRESSING. INTACT DRESSING. SKIN INTACT OTHERWISE. DARK RED DRAINAGE FROM CHEST TUBE. ABDOMEN SOFT ROUND AND NON-TENDER. ACTIVE BOWEL SOUND. DENIES ANY NAUSEA OR VOMITING. DENIES ANY PAIN OR DISCOMFORT AT THIS TIME. HOB ELEVATED. BED IN LOW POSITION LOCKED. WILL CONTINUE TO MONITOR.
[2018-07-22] MEDS: ALBUTEROL SULFATE/IPRATROPIU 3 ML SOL IH SCH ×3 (07:54→20:10)
[2018-07-22] MEDS ORDERED: DEXT 5% /NACL 0.9% 1,000 ML IV SCH (08:45)
[2018-07-22] MEDS: DEXTROSE 10% 1,000 ML IV SCH (08:56)
[2018-07-22] MEDS: hydrALAZINE 25 MG TAB PO SCH ×3 (08:57→16:36)
--- NOTE | 2018-07-22 08:57 | NUR ---
PT EVALUATED BY DR. NOVOA AND RESIDENT GROUP. SAID WILL NEGOTIATE WITH CLINICAL EXERCISE PHYSIOLOGIST AND TILE MOLDER FOR CT CHEST ANGIO W/WO CONTRAST.
[2018-07-22] MEDS: NIFEdipine 60 MG TABER PO SCH ×2 (08:59→20:27)
[2018-07-22] MEDS: SEVELAMER CARBONATE 800 MG TAB PO SCH ×3 (09:01→16:37)
[2018-07-22] MEDS: CALCIUM ACETATE 667 MG TAB PO SCH ×3 (09:01→16:37)
[2018-07-22] MEDS: VIT-B COMP/VIT-C/FOLIC ACID 1 TAB PO SCH (09:01)
[2018-07-22] MEDS: LOSARTAN 50 MG TAB PO SCH (09:02)
[2018-07-22] MEDS: FUROSEMIDE 40 MG TAB PO SCH ×2 (09:02→12:56)
[2018-07-22] MEDS: LACTULOSE 20 GM/30 ML UDC PO SCH ×2 (09:03→20:26)
[2018-07-22] MEDS: METOPROLOL SUCCINATE 50 MG TABER PO SCH (09:04)
[2018-07-22 09:07] LABS: MAGNESIUM 2.4 mg/dL (1.8-2.4); PHOSPHORUS 5.5 mg/dL (2.5-4.9)
--- NOTE | 2018-07-22 10:00 | NUR ---
RESTING IN BED. NO SOB OR ACUTE RESPIRATORY DISTRESS NOTED. CONTINUE ON O2 AT 2 LTR/MIN VIA NC. HOB ELEVATED. CHEST TUBE IN PLACE. DENIES PAIN OR DISCOMFORT. DENIES NAUSEA OR VOMITING AT THIS TIME. CONTINUE TO MONITOR.
[2018-07-22 10:20] LABS: BILIRUBIN,DIRECT 0.3 mg/dL (0.0-0.3); TOTAL BILIRUBIN 0.6 mg/dL (0.0-1.0)
--- NOTE | 2018-07-22 11:02 | NUR ---
SREE FROM [facility] CALLED FOR UPDATE AND CLINICAL UPDATE GIVEN
--- NOTE | 2018-07-22 11:20 | NUR ---
PT TRANSFERRED TO CT FOR CT CHEST ANGIO W/WO CONTRAST AND CAME BACK TO ICU ACCOMPANIED BY PRIMARY NURSE AND GRINDER MACHINE SETTER. PT REMAINED STABLE THROUGHOUT THE PROCEDURE.
--- NOTE | 2018-07-22 13:00 | NUR ---
CALLED ADALID #[phone]. MADE AWARE THAT PT IS SCHEDULED FOR DIALYSIS TOMORROW.
--- NOTE | 2018-07-22 13:00 | NUR ---
DR. MALIK MADE AWARE OF BS 170. NO INSULIN NEEDED PER DR. MALIK. STOPPED D5% NS PER DR. SIMPSON.
--- NOTE | 2018-07-22 13:20 | NUR ---
SWITCH PATIENT TO OXYMIZER MASK AND PLACE IN 6L DUE TO PATIENT SATURATING TO 84-88%. PATIENTS NEW SAT WAS AT 97% ON OXYMIZER 6L
--- NOTE | 2018-07-22 13:27 | NUR ---
SPO2 NOTED 88%. PT DENIES DIFFICULTY BREATHING. RT AT THE BEDSIDE. PLACED PT ON OXYMIZER O2 AT 5 LTR/MIN. HOB ELEVATED. CHEST TUBE IN PLACE. NO C/O PAIN AT THIS TIME. NO NAUSEA OR VOMITING NOTED AT THIS TIME. CONTINUE TO MONITOR.
--- NOTE | 2018-07-22 14:30 | NUR ---
WATER SEAL CHEST DRAINAGE CHANGED BY DR. MALIK. CHEST TUBE DRAIN NOTED 700 ML. DOCTOR AWARE. CHEST TUBE IN PLACE. SECURED WITH DRESSING. CONTINUE ON LOW SUCTION PER ORDER. PT ON STABLE CONDITION. 11 14 SPO2 100%. CONTINUE ON O2 AT 5LTR/MIN. HOB ELEVATED.
--- NOTE | 2018-07-22 15:40 | NUR ---
RESTING IN BED. ALERT, AWAKE. HR 90 BP 134/64 SPO2 100% RR 13. NO SOB OR ACUTE RESPIRATORY DISTRESS AT THIS TIME. CHEST TUBE IN PLACE, CONTINUE ON LOW SUCTION. NO DRAINAGE AT THIS TIME. DR. MALIK AWARE. NO C/O PAIN AT THIS TIME.
--- NOTE | 2018-07-22 16:21 | NUR ---
BS 217. DR. MALIK MADE AWARE.
[2018-07-22] MEDS ORDERED: INSULIN LISPRO SLIDING SCALE 100 UNITS/ML VIAL SUBQ PRN (16:25)
--- NOTE | 2018-07-22 18:00 | NUR ---
LAB AT THE BEDSIDE. PT EATING DINNER AT THIS TIME.
[2018-07-22 18:10] LABS: BASOPHILS # (AUTO) 0.2 K/uL (0.00-0.22); BASOPHILS % (AUTO) 1.9 % (0.0-2.0); EOSINOPHILS # (AUTO) 0.2 K/uL (0-0.4); EOSINOPHILS % (AUTO) 2.6 % (0.0-4.0); HEMATOCRIT 20.7 % (36-52); LYMPHOCYTES # (AUTO) 1.3 K/uL (2.0-11.5); MEAN CORPUSCULAR HEMOGLOBIN 32 pg (27-31); MEAN CORPUSCULAR HGB CONC 34 g/dL (33-37); MEAN CORPUSCULAR VOLUME 95.2 fL (80-94); MONOCYTES # (AUTO) 0.8 K/uL (0.8-1.0); NEUTROPHILS # (AUTO) 5.7 K/uL (1.8-7.7); NEUTROPHILS % (AUTO) 69.5 % (42.2-75.2); PLATELET COUNT (AUTO) 288 K/uL (140-450); RED BLOOD CELL COUNT(AUTO) 2.17 MIL/uL (4.20-6.10); RED CELL DISTRIBUTION WIDTH 16.7 % (11.6-13.7); WHITE BLOOD COUNT (AUTO) 8.2 K/uL (4.8-10.8)
--- NOTE | 2018-07-22 18:40 | NUR ---
PT REMAINED AFEBRILE THROUGHOUT THE SHIFT. DENIES NAUSEA OR VOMITING. DENIES ANY PAIN OR DISCOMFORT. CHEST TUBE IN PLACE. IV SITE SALINE LOCK, INTACT. RIGHT AV FISTULA INTACT. NO URINE OUTPUT. VSS. PT EVALUATED BY DR. PRUITT. MADE AWARE OF URINE OUT PUT AND CHEST TUBE DRAINAGE.
--- NOTE | 2018-07-22 19:05 | NUR ---
REPORT GIVEN TO HORTICULTURAL MANAGER RN FOR CONTINUITY OF CARE.
--- NOTE | 2018-07-22 19:30 | NUR ---
REPORT RECEIVED FROM DAY SHIFT NURSE, HENNY BLANDON FOR CONTINUITY OF CARE. FULL CODE. NKDA. INITIAL VITAL SIGNS: HR 100, BP 110/57, RR 14, SPO2 100% ON OXIMIZER ON 5LPM, TEMP 99.1 TEMPORAL ARTERY. PT A&OX4. PT REPORTS NO PAIN OR DISCOMFORT. PT'S PUPILS, LEFT AND RIGHT, 3MM PERRLA, TRACK APPROPRIATELY. NSR ON MONITOR. 20G PIV LEFT FOREARM, ASYMPTOMATIC, PATENT, FLUSHED. PALPABLE PULSES (RADIAL, POSTERIOR TIBIAL, DORSALIS PEDIS). GINI FISTULA, THRILL AND BRUIT PRESENT. PATENT AIRWAY. HYPER-RESONANT BREATH SOUNDS ON RIGHT SIDE, DIMINISHED RLL, CLEAR LEFT SIDE. CHEST EXPANDS SYMMETRICALLY. BOWEL SOUNDS HYPOACTIVE. RENAL DIET. SURGICAL INCISION WITH PIGTAIL CHEST DRAIN ON RIGHT ABD DRAINING SANGUINOUS FLUID. SAFETY PRECAUTIONS IN PLACE. BED IN LOWEST POSITION. CALL LIGHT WITHIN REACH. Addendum: 07/23/18 at 0302 by Rory Mary RN PT'S CELLULAR PHONE AT BEDSIDE
--- NOTE | 2018-07-22 20:00 | NUR ---
PT'S SON, ROHAN, AT BEDSIDE. PT RESTING COMFORTABLY.
[2018-07-22] MEDS: HYDROcodone/APAP 7.5/325 MG 1 TAB PO PRN (20:12)
--- NOTE | 2018-07-22 20:25 | NUR ---
RECEIVED PATIENT ON 5L OXYMIZER, PULSE OX SAT 100%. SCHEDULED BREATHING TREATMENT ADMINISTERED. TOLERATED TX WELL, NO ADVERSE SIDE EFFECTS. REPLACED OXYMIZER. TITRATED OXYGEN TO 4L, PULSE OX SAT 96%. NO RESPIRATORY DISTRESS NOTED AT THIS TIME. WILL CONTINUE TO MONITOR.
[2018-07-23] VITALS (12 sets, daily range): BP systolic 96–123; BP diastolic 34–68
--- NOTE | 2018-07-23 00:25 | NUR ---
PT RESTING, EYES CLOSED, NO SIGNS OF DISTRESS. WILL CONTINUE TO MONITOR.
--- NOTE | 2018-07-23 02:15 | NUR ---
PT'S EYES CLOSED, RESTING COMFORTABLY. SAFETY PRECAUTIONS IN PLACE. CALL LIGHT WITHIN REACH.
--- NOTE | 2018-07-23 03:43 | NUR ---
PT REFUSED BED BATH AND ORAL CARE. STATED THAT IT WAS PERFORMED ON DAY SHIFT AND HE WANTS TO REST.
[2018-07-23 05:35] LABS: ANION GAP 11.1 (8-16); CARBON DIOXIDE 31.2 mmol/L (21-32); POTASSIUM 5.3 mmol/L (3.5-5.1)
[2018-07-23 05:40] LABS: MAGNESIUM 2.5 mg/dL (1.8-2.4); PHOSPHORUS 5.8 mg/dL (2.5-4.9)
[2018-07-23 05:47] LABS: CREATININE 7.3 mg/dL (0.7-1.3)
[2018-07-23] MEDS: BLOOD GLUCOSE MONITORING 1 DEV DEV FS SCH ×4 (06:47→21:09)
[2018-07-23 07:00] LABS: BASOPHILS # (AUTO) 0.1 K/uL (0.00-0.22); BASOPHILS % (AUTO) 1.9 % (0.0-2.0); EOSINOPHILS # (AUTO) 0.3 K/uL (0-0.4); EOSINOPHILS % (AUTO) 3.6 % (0.0-4.0); LYMPHOCYTES # (AUTO) 1.3 K/uL (2.0-11.5); LYMPHOCYTES % (AUTO) 16.9 % (20.5-51.1); MEAN CORPUSCULAR HEMOGLOBIN 32 pg (27-31); MEAN CORPUSCULAR HGB CONC 34 g/dL (33-37); MEAN CORPUSCULAR VOLUME 94.4 fL (80-94); MONOCYTES # (AUTO) 0.7 K/uL (0.8-1.0); MONOCYTES % (AUTO) 9.9 % (1.7-9.3); NEUTROPHILS # (AUTO) 5.1 K/uL (1.8-7.7); NEUTROPHILS % (AUTO) 67.7 % (42.2-75.2); PLATELET COUNT (AUTO) 309 K/uL (140-450); RED BLOOD CELL COUNT(AUTO) 2.03 MIL/uL (4.20-6.10); RED CELL DISTRIBUTION WIDTH 16.6 % (11.6-13.7); WHITE BLOOD COUNT (AUTO) 7.6 K/uL (4.8-10.8)
[2018-07-23 07:10] LABS: HEMATOCRIT 19.1 % (36-52); HEMOGLOBIN 6.5 g/dL (12.0-18.0)
[2018-07-23] MEDS: ALBUTEROL SULFATE/IPRATROPIU 3 ML SOL IH SCH ×3 (07:16→19:43)
--- NOTE | 2018-07-23 07:16 | NUR ---
REPORT GIVEN TO MORNING RNSYL, FOR CONTINUITY OF CARE. VS STABLE AT THIS TIME. ENDORSED PT'S BELONGINGS AT BEDSIDE.
--- NOTE | 2018-07-23 07:17 | NUR ---
RECEIVED PT REPORT AT BEDSIDE, PT IS AAOX4, SUDANESE SPEAKING, ABLE TO FOLLOW COMMANDS AND MAKE NEEDS KNOWN, VSS, DENIES PAIN, NO S/S OF DISTRESS, CLEAR LUNG SOUNDS TO LEFT CHEST, DIMINISHED LUNG SOUND TO RIGHT CHEST, PIGTAIL CHEST TUBE INPLACE DRAINGING VIA GRAVITY, ON OXYMIZER AT 4L, O2 SAT 96%, DENIES CHEST PAIN, SR ON MERCHANT TAILOR, SOFT ABDOMEN WITH ACTIVE BOWEL SOUNDS, CONTINENT WITH BM, ANURIA, HD PATIENT, FISTULA TO RIGHT UPPER ARM, ABLE TO MOVE ALL EXTREMITIES, GENERALIZED WEAKNESS NOTED, SKIN IS WARM AND DRY TO TOUCH, IV LINE TO LEFT FOREARM, 20GA,PATENT AND SL. HOB ELEVATED TO 30 DEGREES, SAFETY MEASURES IN PLACE, CALL LIGHT WITHIN REACH, WILL CONTINUE TO MONITOR.
[2018-07-23] MEDS: NIFEdipine 60 MG TABER PO SCH ×2 (08:24→21:02)
[2018-07-23] MEDS: hydrALAZINE 25 MG TAB PO SCH ×3 (08:24→16:06)
[2018-07-23] MEDS: LOSARTAN 50 MG TAB PO SCH (08:25)
[2018-07-23] MEDS: METOPROLOL SUCCINATE 50 MG TABER PO SCH (08:25)
--- NOTE | 2018-07-23 08:30 | NUR ---
SCHEDULED MEDICATION GIVEN, BP MEDICATIONS HELD AT THIS TIME DUE TO LOW BP 96/49, DR. SHEILA MOREIRA.
[2018-07-23] MEDS: LACTULOSE 20 GM/30 ML UDC PO SCH ×2 (08:33→21:02)
[2018-07-23] MEDS: VIT-B COMP/VIT-C/FOLIC ACID 1 TAB PO SCH (08:33)
[2018-07-23] MEDS: CALCIUM ACETATE 667 MG TAB PO SCH ×3 (08:33→16:20)
[2018-07-23] MEDS: SEVELAMER CARBONATE 800 MG TAB PO SCH ×3 (08:34→16:20)
[2018-07-23] MEDS: FUROSEMIDE 40 MG TAB PO SCH ×2 (08:35→12:11)
[2018-07-23] MEDS ORDERED: FOLIC ACID 1 MG TAB PO SCH (09:07)
[2018-07-23] MEDS ORDERED: SODIUM FERRIC GLUCONATE 125 MG in NACL 0.9% 100 ML IV SCH (10:00)
--- NOTE | 2018-07-23 10:00 | NUR ---
PT IS RESTING IN BED, NO S/S OF DISTRESS, VSS, POSITION CHANGED FOR COMFORT.
[2018-07-23] MEDS: CYANOCOBALAMIN 100 MCG TAB PO SCH (10:05)
--- NOTE | 2018-07-23 12:10 | NUR ---
DR. PULIDO CAME IN TO SEE PT AT BEDSIDE, DR. SOSA WELL, WILL FOLLOW UP WITH NEW ORDERS.
--- NOTE | 2018-07-23 13:19 | NUR ---
TITRATED OXYGEN TO 2L OXYMIZER PT NOT IN ANY DISTRESS AT THIS TIME. WILL CONTINUE TO MONITOR.
--- NOTE | 2018-07-23 14:50 | NUR ---
PER DR MALIK TO HOLD THE TRANSFER TO HIGHER LEVEL OF CARE FOR NOW . CALLED [facility] SPOKE WITH SREE CM NOTIFIED HER THAT DISCHARGE HAS BEEN HELD FOR NOW OUR SURGEON WILL PUT NEW CHEST TUBE AND STABILIZED PATENT.
--- NOTE | 2018-07-23 16:00 | NUR ---
PM CARE PROVIDED, PT IS RESTING IN BED, NO S/S OF DISTRESS, DENIES PAIN, VSS, WILL CONTINUE TO MONITOR.
--- NOTE | 2018-07-23 16:05 | NUR ---
07/23/18 RD FOLLOW UP COMPLETED PLEASE REFER TO NUTRITION ASSESSMENT UNDER CARE ACTIVITY FOR ESTIMATED NUTRITIONAL NEEDS. 1. CONTINUE RENAL DIET WITH 1 LITER FLUID RESTRICTION TOLERATED 2. RD PROVIDED NUTRITION EDUCATION ON IRON RICH FOOD SOURCES IN [place]. PT ACCEPTED 3. RD TO FOLLOW-UP 2-3 DAYS, HIGH RISK ANNE XIONG, RD
--- NOTE | 2018-07-23 16:15 | NUR ---
HD STARTED AT THIS TIME, HD NURSE AT BEDSIDE.
[2018-07-23] MEDS: EPOETIN ALFA 10,000 UNITS/ML VIAL SUBQ SCH (16:21)
--- NOTE | 2018-07-23 19:23 | NUR ---
REPORT GIVEN TO DIETETICS DIRECTOR NURSE AT BEDSIDE FOR CONTINUE OF CARE, PT IS IN STABLE CONDITION AT THIS TIME.
--- NOTE | 2018-07-23 19:30 | NUR ---
RECEIVED REPORT FROM AM NURSE. PT AT BED AWAKE. ALERT AND ORIENTED X4, CALM, COOPERATIVE, PERRLA 3MM, BRISK, S1S2 PRESENT, 2+ BILATERAL UPPER EXTREMITIES, 2+ BILATERAL LOWER EXTREMITIES, CAP REFILL <3S, LUNG SOUNDS CLEAR THROUGHOUT, DIMINISHED ON BASES, BOWEL SOUNDS PRESENT ON ALL QUADRANTS, HYPOACTIVE, ABDOMEN, SOFT, ROUND, NONDISTENDED, NON TENDER, MUSCLE STRENGTH 5/5 ON BILATERAL UPPER AND LOWER EXTREMITIES, SKIN INTACT, NON ELASTIC, APPROPRIATE TO ETHNICITY, PT CURRENTLY ON HEMODIALYSIS, 2L O2 ON NC, CHEST TUBE IN PLACE WITH OUTPUT CURRENTLY AT 550 ML. WILL CONTINUE TO MONITOR PT.
--- NOTE | 2018-07-23 20:40 | NUR ---
RT GRANADOS BROUGHT IN COPY OF ECHO REPORT, STATED EJECTION FRACTION IS 60%. WILL WAIT FOR OFFICIAL DICTATED REPORT.
--- NOTE | 2018-07-23 21:30 | NUR ---
DR. KHAN AND DR. PRUITT AT BEDSIDE. UPDATED ON PT CONDITION. DR. KHAN SET THE WALL SUCTION FOR CHEST TUBE AT 127 MM/HG MEDIUM SETTING, ADVISED TO CONTINUE THE SETTING FOR NOW. DR. KHAN PLAN FOR CHEST TUBE PROCEDURE TOMORROW AM 07/24/2018, NPO AT MIDNIGHT.
--- NOTE | 2018-07-23 22:29 | NUR ---
PT AT BED RESTING, EYES CLOSED, ON O2 NC OXYMYZER 2L, PT HAD SANDWICH EARLIER ATE 50%, .
[2018-07-24] VITALS (12 sets, daily range): BP systolic 96–132; BP diastolic 49–61
[2018-07-24 00:49] LABS: BASOPHILS # (AUTO) 0.1 K/uL (0.00-0.22); EOSINOPHILS # (AUTO) 0.3 K/uL (0-0.4); EOSINOPHILS % (AUTO) 4.4 % (0.0-4.0); HEMATOCRIT 20.7 % (36-52); LYMPHOCYTES % (AUTO) 14.6 % (20.5-51.1); MEAN CORPUSCULAR HEMOGLOBIN 32 pg (27-31); MEAN CORPUSCULAR HGB CONC 34 g/dL (33-37); MONOCYTES # (AUTO) 0.8 K/uL (0.8-1.0); MONOCYTES % (AUTO) 11.5 % (1.7-9.3); NEUTROPHILS # (AUTO) 4.7 K/uL (1.8-7.7); NEUTROPHILS % (AUTO) 67.5 % (42.2-75.2); PLATELET COUNT (AUTO) 294 K/uL (140-450); RED CELL DISTRIBUTION WIDTH 16.3 % (11.6-13.7); WHITE BLOOD COUNT (AUTO) 6.9 K/uL (4.8-10.8)
--- NOTE | 2018-07-24 01:41 | NUR ---
HENNY DALLAS ENDORSED CRITICAL LAB RESULTS OF HGB 7.0, HCT 20.9. TRENDING UPWARDS. Addendum: 07/24/18 at 0200 by Nidia Chicas RN AT 0145 REPORTED CRITICAL LAB RESULTS TO DR. ABERNATHY
[2018-07-24] MEDS: HYDROcodone/APAP 7.5/325 MG 1 TAB PO PRN (02:33)
--- NOTE | 2018-07-24 02:35 | NUR ---
PT AWAKE WITH COMPLAINTS OF PAIN IN RIGHT SIDE/LOWER BACK, RATED 4/10. VSS, NORCO ADMINISTERED. PT DENIES NAUSEA AT THIS TIME AND ABLE TO REPOSITION SELF INDEPENDENTLY IN BED. SATING 96% AT 2L/MIN.
--- NOTE | 2018-07-24 05:04 | NUR ---
0500 DIRECTOR OF CASINO AT BEDSIDE DRAWING BLOOD, PT TOLERATED PROCEDURE WELL. PT AT BED RESTING, EYES CLOSED, 2L O2 OXYMYZER RUNNING, CHEST TUBE AT CONTINUOUS WALL SUCTION, WILL CONTINUE TO MONITOR PT.
[2018-07-24 05:43] LABS: ANION GAP 9.5 (8-16); CARBON DIOXIDE 31.5 mmol/L (21-32)
[2018-07-24 05:48] LABS: BASOPHILS # (AUTO) 0.2 K/uL (0.00-0.22); BASOPHILS % (AUTO) 2.2 % (0.0-2.0); EOSINOPHILS # (AUTO) 0.4 K/uL (0-0.4); LYMPHOCYTES # (AUTO) 1.1 K/uL (2.0-11.5); LYMPHOCYTES % (AUTO) 16.1 % (20.5-51.1); MEAN CORPUSCULAR HEMOGLOBIN 33 pg (27-31); MEAN CORPUSCULAR HGB CONC 34 g/dL (33-37); MEAN CORPUSCULAR VOLUME 94.7 fL (80-94); MONOCYTES # (AUTO) 0.8 K/uL (0.8-1.0); MONOCYTES % (AUTO) 10.5 % (1.7-9.3); NEUTROPHILS # (AUTO) 4.7 K/uL (1.8-7.7); NEUTROPHILS % (AUTO) 66.2 % (42.2-75.2); PLATELET COUNT (AUTO) 296 K/uL (140-450); RED CELL DISTRIBUTION WIDTH 16.9 % (11.6-13.7); WHITE BLOOD COUNT (AUTO) 7.1 K/uL (4.8-10.8)
[2018-07-24 05:50] LABS: MAGNESIUM 2.1 mg/dL (1.8-2.4); PHOSPHORUS 4.3 mg/dL (2.5-4.9)
[2018-07-24 05:53] LABS: CREATININE 5.1 mg/dL (0.7-1.3)
[2018-07-24 05:54] LABS: HEMATOCRIT 18.9 % (36-52); HEMOGLOBIN 6.5 g/dL (12.0-18.0)
[2018-07-24] MEDS: ALBUTEROL SULFATE/IPRATROPIU 3 ML SOL IH SCH ×3 (06:49→18:51)
--- NOTE | 2018-07-24 07:19 | NUR ---
RECEIVED BEDSIDE REPORT FROM C D STILL OPERATOR RNLIBORIO, FOR CONTINUITY OF CARE. PATIENT IS AAOX4, ABLE TO FOLLOW COMMANDS AND MAKE NEEDS KNOWN. PATIENT SKIN IS WARM, DRY, INTACT. PATIENT HAS CHEST TUBE IN PLACE IN THE RIGHT LOWER CHEST ON CONTINUOUS LOW SUCTION, SECURED WITH DRESSING, DRAINAGE IS SEROSANGUINOUS. PATIENT IS NASAL OXIMIZER AT 2LPM.BREATHING IS EVEN AND UNLABORED. PATIENT IS SR ON MONITOR, BP STABLE, DENIES PAIN. HOB IS 30 DEGREES, BED LOCKED, SIDE RAILS UP. NO DISTRESS AT THIS TIME, CALL LIGHT WITHIN REACH, WILL CONTINUE TO MONITOR
[2018-07-24] MEDS: SEVELAMER CARBONATE 800 MG TAB PO SCH ×3 (08:00→16:34)
[2018-07-24] MEDS: BLOOD GLUCOSE MONITORING 1 DEV DEV FS SCH ×4 (08:08→21:12)
[2018-07-24 08:12] LABS: FOLIC ACID 13.2 ng/mL (>3.0)
--- NOTE | 2018-07-24 08:27 | NUR ---
RESIDENT PHYSICIANS AT BEDSIDE, UPDATED ON PATIENT'S CONDITION. WILL FOLLOW UP ON ANY ORDERS.
[2018-07-24] MEDS: FOLIC ACID 1 MG TAB PO SCH (09:00)
[2018-07-24] MEDS: METOPROLOL SUCCINATE 50 MG TABER PO SCH (09:00)
[2018-07-24] MEDS: CALCIUM ACETATE 667 MG TAB PO SCH ×3 (09:00→16:33)
[2018-07-24] MEDS: FUROSEMIDE 40 MG TAB PO SCH ×2 (09:00→13:00)
[2018-07-24] MEDS: hydrALAZINE 25 MG TAB PO SCH ×3 (09:00→16:32)
[2018-07-24] MEDS: CYANOCOBALAMIN 100 MCG TAB PO SCH (09:00)
[2018-07-24] MEDS: VIT-B COMP/VIT-C/FOLIC ACID 1 TAB PO SCH (09:00)
[2018-07-24] MEDS: NIFEdipine 60 MG TABER PO SCH ×2 (09:00→21:08)
[2018-07-24] MEDS: LOSARTAN 50 MG TAB PO SCH (09:00)
[2018-07-24] MEDS: LACTULOSE 20 GM/30 ML UDC PO SCH ×2 (09:00→21:08)
--- NOTE | 2018-07-24 09:25 | NUR ---
PATIENT DENIES ANY PAIN AT THIS TIME, SCHEDULED PO MEDS HELD SINCE PATIENT IS NPO. VITALS STABLE AT THIS TIME.
[2018-07-24] MEDS ORDERED: SODIUM FERRIC GLUCONATE 125 MG in NACL 0.9% 100 ML IV SCH (10:00)
--- NOTE | 2018-07-24 13:33 | NUR ---
RECEIVED CALL FROM DR. KHAN, STATES THAT HE WILL BE DOING PROCEDURE AROUND 1400, RECEIVED ORDERS FOR DILAUDID 1MG NOW.
[2018-07-24] MEDS ORDERED: HYDROmorphone 1 MG/ML AMP IVP SCH (13:37)
--- NOTE | 2018-07-24 13:56 | NUR ---
DR. FREEMAN IN TO SEE AND EXAMINE PATIENT. UPDATED ON PATIENT'S CONDITION. WILL FOLLOW UP ON ANY ORDERS
[2018-07-24] MEDS ORDERED: fentaNYL 0.05 MG/ML VIAL ONE (14:06)
[2018-07-24] MEDS ORDERED: MIDAZOLAM 2 MG/2 ML VIAL ONE (14:06)
--- NOTE | 2018-07-24 14:07 | NUR ---
PER DR. FREEMAN, NO HEMODIALYSIS FOR TODAY, WILL CHECK PATIENT TOMORROW, DR. MALIK AWARE.
--- NOTE | 2018-07-24 14:29 | NUR ---
DR. KHAN IS HERE TO INSERT CHEST TUBE. PATIENT'S VS STABLE AT THIS TIME. INFORMED CONSENT IS SIGNED
[2018-07-24] MEDS ORDERED: LIDOCAINE 2% 1000 MG/50 ML VIAL INJ ONE (14:34)
--- NOTE | 2018-07-24 14:58 | NUR ---
INSERTION OF CHEST TUBE AT BEDSIDE IS COMPLETE, PATIENT TOLERATED WELL. PATIENT HAS CHEST TUBE TO R. LOBE ON HIGH SUCTION, 120ML SEROSANGUINOUS OUTPUT NOTED. PATIENT HAS PIGTAIL CHEST TUBE TO R. LOBE ON HIGH SUCTION. VITALS STABLE AT THIS TIME. WILL CONTINUE TO MONITOR
[2018-07-24 16:57] LABS: BASOPHILS # (AUTO) 0.2 K/uL (0.00-0.22); BASOPHILS % (AUTO) 2.5 % (0.0-2.0); EOSINOPHILS # (AUTO) 0.4 K/uL (0-0.4); EOSINOPHILS % (AUTO) 6.1 % (0.0-4.0); HEMATOCRIT 20.4 % (36-52); LYMPHOCYTES # (AUTO) 0.9 K/uL (2.0-11.5); LYMPHOCYTES % (AUTO) 13.5 % (20.5-51.1); MEAN CORPUSCULAR HEMOGLOBIN 32 pg (27-31); MEAN CORPUSCULAR HGB CONC 34 g/dL (33-37); MEAN CORPUSCULAR VOLUME 95.2 fL (80-94); MONOCYTES # (AUTO) 0.6 K/uL (0.8-1.0); MONOCYTES % (AUTO) 8.9 % (1.7-9.3); NEUTROPHILS # (AUTO) 4.6 K/uL (1.8-7.7); PLATELET COUNT (AUTO) 300 K/uL (140-450); RED BLOOD CELL COUNT(AUTO) 2.15 MIL/uL (4.20-6.10); WHITE BLOOD COUNT (AUTO) 6.6 K/uL (4.8-10.8)
[2018-07-24 17:00] LABS: HEMOGLOBIN 6.9 g/dL (12.0-18.0)
--- NOTE | 2018-07-24 17:20 | NUR ---
DR. CASTRO IS HERE TO SEE PATIENT, UPDATED ON PATIENT'S CONDITION. WILL FOLLOW UP ON ANY ORDER
--- NOTE | 2018-07-24 18:12 | NUR ---
PROVIDED PATIENT WITH DINNER TRAY, PATIENT IS AAOX4, ABLE TO MAKE NEEDS KNOWN. NO SIGNS OF DISTRESS, CALL LIGHT WITHIN REACH
--- NOTE | 2018-07-24 18:35 | NUR ---
DR. CARDENAS IN TO SEE AND EXAMINE PATIENT, UPDATED ON PATIENT'S CONDITION. WILL FOLLOW UP ON ANY ORDERS.
--- NOTE | 2018-07-24 19:09 | NUR ---
ENDORSED CONTINUITY OF CARE TO CRIMINAL JUSTICE SOCIAL WORKER RNS DEONDRE AND LIBORIO. NO SIGNS OF DISTRESS AT THIS TIME.
--- NOTE | 2018-07-24 19:20 | NUR ---
RECEIVED REPORT FROM AM NURSE, PT AT BED EYES CLOSED, BREATHING REGULARLY, [address] RUNNING 2L/MIN, 02 SAT 96%, [address], WALL SUCTION FOR CHEST TUBE RUNNING AT 125 MM/HG, PATIENT ALERT AND ORIENTED X4, PERRLA 3MM, PUPIL BRISK, COOPERATIVE, CALM, S1S2 PRESENT, HR REGULAR, 2+ BILATERAL UPPER AND LOWER EXTREMITIES, CAP REFILL <3S, LUNG SOUNDS CLEAR THROUGHOUT, DIMINISHED AT BASES, BREATHING UNLABORED, REGULAR, ABDOMEN, SOFT ROUND, NONDISTENDED, LAST BM 07/21/18, HYPOACTIVE BOWEL SOUNDS ON ALL QUADRANTS, SKIN COLOR APPROPRIATE TO ETHNICITY, DRESSING ON RIGHT LOWER CHEST, INTACT, DRY, SKIN ELASTIC, SL 20 GAUGE ON LEFT FA, GENERALIZED WEAKNESS, GOOD STOREKEEPER STEWARD 5/5 BILATERAL UE, PLANTAR FLEXION 5/5 BILATERAL LOWER EXTREMITIES. WILL CONTINUE TO MONITOR PT Addendum: 07/24/18 at 2036 by Mathieu Lindsay RN SIDERAILS UP X2, BED AT LOW POSITION, ALARM IN PLACE, NURSE CALL BUTTON WITHIN REACH, ROOM FREE OF CLUTTER
--- NOTE | 2018-07-24 21:19 | NUR ---
MEDICATIONS GIVEN. PT AWAKE, COOPERATIVE, CALM, BS 130, NO C/O OF PAIN, WILL CONTINUE TO MONITOR PT
--- NOTE | 2018-07-24 22:46 | NUR ---
PT ASLEEP AT BED, EYES CLOSED, BREATHING REGULARLY 02SAT 98%, PT ON 2L OXIMYZER, CHEST TUBE SUCTION RUNNING AT DOCUMENTED SETTINGS, SIDERAILS UP X2, WILL CONTINUE TO MONITOR PT.
[2018-07-25] VITALS (12 sets, daily range): BP systolic 92–134; BP diastolic 44–59
--- NOTE | 2018-07-25 01:37 | NUR ---
PT ASLEEP AT BED, EYES CLOSED, BREATHING REGULARLY 02SAT 96%, PT ON 2L OXIMYZER, CHEST TUBE SUCTION RUNNING AT DOCUMENTED SETTINGS, SIDERAILS UP X2, WILL CONTINUE TO MONITOR PT.
--- NOTE | 2018-07-25 04:15 | NUR ---
PERFORMED ADL WITH PT ON MINIMAL ASSIST. PT TOLERATED THE ACTIVITY WELL. SIDERAILS UP X2, PT ON 02 OXIMYZER 2L, CHEST TUBE SUCTION ON DOCUMENTED SETTINGS. WILL CONTINUE TO MONITOR PT.
[2018-07-25] MEDS: HYDROcodone/APAP 7.5/325 MG 1 TAB PO PRN (04:21)
[2018-07-25 04:30] LABS: BASOPHILS # (AUTO) 0.2 K/uL (0.00-0.22); BASOPHILS % (AUTO) 2.5 % (0.0-2.0); EOSINOPHILS # (AUTO) 0.5 K/uL (0-0.4); EOSINOPHILS % (AUTO) 6.9 % (0.0-4.0); HEMATOCRIT 21.1 % (36-52); HEMOGLOBIN 7.2 g/dL (12.0-18.0); LYMPHOCYTES % (AUTO) 13.8 % (20.5-51.1); MEAN CORPUSCULAR HEMOGLOBIN 32 pg (27-31); MEAN CORPUSCULAR HGB CONC 34 g/dL (33-37); MEAN CORPUSCULAR VOLUME 95.3 fL (80-94); MONOCYTES # (AUTO) 0.6 K/uL (0.8-1.0); NEUTROPHILS # (AUTO) 4.9 K/uL (1.8-7.7); NEUTROPHILS % (AUTO) 68.8 % (42.2-75.2); PLATELET COUNT (AUTO) 324 K/uL (140-450); RED BLOOD CELL COUNT(AUTO) 2.22 MIL/uL (4.20-6.10); RED CELL DISTRIBUTION WIDTH 17.2 % (11.6-13.7); WHITE BLOOD COUNT (AUTO) 7.1 K/uL (4.8-10.8)
[2018-07-25 04:55] LABS: ANION GAP 12.9 (8-16); CARBON DIOXIDE 30.1 mmol/L (21-32)
[2018-07-25 04:59] LABS: MAGNESIUM 2.4 mg/dL (1.8-2.4); PHOSPHORUS 6.2 mg/dL (2.5-4.9)
[2018-07-25 05:23] LABS: CREATININE 7.1 mg/dL (0.7-1.3)
--- NOTE | 2018-07-25 06:00 | NUR ---
DR MALIK AT BEDSIDE, UPDATED ON PT CONDITION. NO NEW ORDERS. PT ASLEEP AT BED, EYES CLOSED, BREATHING REGULARLY 02SAT 100%, PT ON 2L OXIMYZER, CHEST TUBE SUCTION RUNNING AT DOCUMENTED SETTINGS, SIDERAILS UP X2, WILL CONTINUE TO MONITOR PT
[2018-07-25] MEDS: ALBUTEROL SULFATE/IPRATROPIU 3 ML SOL IH SCH ×3 (06:10→19:31)
--- NOTE | 2018-07-25 07:05 | NUR ---
BS ACCUCHECK DONE AT BEDSIDE. BS 67. PT WAS GIVEN 2 BOXES OF APPLEJUICE, 250ML TOTAL, PT DRANK BOTH BOXES. WILL CONTINUE TO MONITOR PT.
--- NOTE | 2018-07-25 07:12 | NUR ---
RECEIVED BEDSIDE REPORT FROM STRAP FOLDING MACHINE OPERATOR RN, LIBORIO, FOR CONTINUITY OF CARE. PATIENT IS AAOX4, ABLE TO FOLLOW COMMANDS AND MAKE NEEDS KNOWN. PATIENT SKIN IS WARM, DRY, AFEBRILE NOT INTACT, HE HAS CHEST TUBE TO RIGHT UPPER LATERAL CHEST TO HIGH SUCTION, DRAINAGE OUTPUT FROM STRAP FOLDING MACHINE OPERATOR IS 105 ML OF SEROSANGUINOUS FLUID, HE HAS PIGTAIL CHEST TUBE RIGHT LOWER LATERAL CHEST TO HIGH SUCTION, DRAINAGE OUTPUT FROM STRAP FOLDING MACHINE OPERATOR IS 5ML OF SEROSANGUINOUS FLUID. BREATHING IS EVEN AND UNLABORED, PATIENT IS ON NASAL OXIMIZER AT 2LPM. PATIENT IS SR ON MONITOR, VITALS STABLE, DENIES PAIN AT THIS TIME. PATIENT IS ANURIC. HOB IS SEMI-REHMAN, BED LOCKED, SIDE RAILS UP. CALL LIGHT WITHIN REACH. NO SIGNS OF DISTRESS. WILL CONTINUE TO MONITOR
--- NOTE | 2018-07-25 07:22 | NUR ---
REPORT GIVEN TO BETH Wilks BEDSIDE. PT AT BED, AWAKE, BREATHING REGULARLY ON OXIMYZER AT 2L.
[2018-07-25] MEDS: BLOOD GLUCOSE MONITORING 1 DEV DEV FS SCH ×4 (07:37→20:28)
--- NOTE | 2018-07-25 07:50 | NUR ---
RECEIVED CRITICAL RADIOLOGY REPORT FOR PNEUMOTHORAX ADJACENT TO HEMOTHORAX, DR. MALIK AWARE.
[2018-07-25] MEDS: CALCIUM ACETATE 667 MG TAB PO SCH ×3 (08:23→17:04)
[2018-07-25] MEDS: SEVELAMER CARBONATE 800 MG TAB PO SCH ×3 (08:23→17:04)
[2018-07-25] MEDS: VIT-B COMP/VIT-C/FOLIC ACID 1 TAB PO SCH (08:23)
[2018-07-25] MEDS: NIFEdipine 60 MG TABER PO SCH ×2 (08:23→20:47)
[2018-07-25] MEDS: FOLIC ACID 1 MG TAB PO SCH (08:23)
[2018-07-25] MEDS: LOSARTAN 50 MG TAB PO SCH (08:24)
[2018-07-25] MEDS: FUROSEMIDE 40 MG TAB PO SCH ×2 (08:24→12:09)
[2018-07-25] MEDS: LACTULOSE 20 GM/30 ML UDC PO SCH ×2 (08:25→20:33)
[2018-07-25] MEDS: CYANOCOBALAMIN 100 MCG TAB PO SCH (08:26)
[2018-07-25] MEDS: hydrALAZINE 25 MG TAB PO SCH ×3 (08:27→17:04)
[2018-07-25] MEDS: METOPROLOL SUCCINATE 50 MG TABER PO SCH (08:27)
--- NOTE | 2018-07-25 08:31 | NUR ---
ADMINISTERED SCHEDULED MEDS ORDERED, HELD HYDRALAZINE AND METOPROLOL DUE TO BORDERLINE BP, PATIENT TOLERATED WELL.
--- NOTE | 2018-07-25 08:43 | NUR ---
RESIDENT PHYSICIANS AT BEDSIDE, UPDATED ON PATIENT'S CONDITION. WILL FOLLOW UP WITH ANY ORDERS.
--- NOTE | 2018-07-25 08:54 | NUR ---
PATIENT FAMILY IS HERE.
--- NOTE | 2018-07-25 12:10 | NUR ---
PROVIDED PATIENT WITH LUNCH TRAY, NO SIGNS OF DISTRESS NOTED. CHEST TUBE IN PLACE TO HIGH SUCTION, SEROSANGUINOUS DRAINAGE NOTED, VITALS STABLE. WILL CONTINUE TO MONITOR
--- NOTE | 2018-07-25 13:22 | NUR ---
DR. FREEMAN IN TO SEE AND EXAMINE PATIENT, UPDATED ON PATIENT'S CONDITION. STATES HEMODIALYSIS FOR TOMORROW.
--- NOTE | 2018-07-25 13:32 | NUR ---
CALLED ADALID LOYOLA FROM [facility], AWARE THAT PATIENT WILL HAVE DIALYSIS TOMORROW
--- NOTE | 2018-07-25 15:44 | NUR ---
DR. KHAN IS HERE TO SEE PATIENT, UPDATED ON PATIENT'S CONDITION. WILL FOLLOW UP ON ANY ORDERS.
--- NOTE | 2018-07-25 15:44 | NUR ---
DR. CASTRO IS HERE TO SEE PATIENT, UPDATED ON PATIENT'S CONDITION.
--- NOTE | 2018-07-25 17:28 | NUR ---
PROVIDED PATIENT WITH DINNER TRAY, VITALS STABLE AT THIS TIME. ADMINISTERED SCHEDULED MEDS ORDERED, PATIENT TOLERATED WELL.
--- NOTE | 2018-07-25 18:52 | NUR ---
WORKPLACE RELATIONS ADVISER AT BEDSIDE, TO TAKE CHEST XRAY, NO DISTRESS NOTED
--- NOTE | 2018-07-25 19:30 | NUR ---
RECEIVED BEDSIDE REPORT FROM MORNING SHIFT RNZACHARY. PT IS AWAKE, AAOX4, ABLE TO RESPOND TO COMMANDS. VSS, TEMP 98.5, BP 114/54, SATING 99%, RR=16. SR ON GENERAL MANAGER, LUNG SOUNDS COARSE/DIMINISHED ON UPPER/LOWER BILATERAL LOBES. BOWEL SOUND ACTIVE X4. NO SALAZAR OR BEDSIDE COMMODE, PT IS ANURIC. AV FISTULA ON RIGHT UPPER ARM. 20 GAUGE PIV ON LEFT WRIST, SALINE FLUSHED. NOTHING INFUSING AT THIS TIME. SKIN IS NON-INTACT, WITH SURGICAL INCISION OF RIGHT PIGTAIL AND RIGHT CHEST TUBE IN PLACE SET TO HIGH SUCTION, SANGUINOUS FLUID NOTED IN CHEST TUBE. HOB ELEVATED ABOVE 30 DEG, FAMILY AT BEDSIDE. NKA, FULL CODE, FALL RISK PRECAUTIONS MAINTAINED.
[2018-07-25] MEDS: ACETAMINOPHEN 325 MG TAB PO PRN (20:39)
--- NOTE | 2018-07-25 20:39 | NUR ---
DR CARDENAS IN TO SEE PATIENT. UPDATED ON PT CONDITIONS.
--- NOTE | 2018-07-25 21:23 | NUR ---
CALLED DR. CARDENAS AND UPDATED ON NO SLIDING SCALE PER GLUCOSE 195. DR. CARDENAS TO ADD SLIDING SCALE TO EMAR.
[2018-07-25] MEDS ORDERED: INSULIN LISPRO SLIDING SCALE 100 UNITS/ML VIAL SUBQ PRN (22:35)
[2018-07-25] MEDS ORDERED: DEXTROSE 50% 50 ML SYR IVP PRN (22:35)
--- NOTE | 2018-07-25 22:57 | NUR ---
ADMINISTERED 2 UNITS HUMULOG INSULIN SUQ DUE TO PT BLOOD GLUCOSE 195. CORRECT INSULIN DOSE VERIFIED BY SECOND RNLOREN AT BEDSIDE.
[2018-07-26] VITALS (12 sets, daily range): BP systolic 103–128; BP diastolic 55–80
--- NOTE | 2018-07-26 01:04 | NUR ---
PT RELAXED IN BED, RIGHT CHEST TUBE AND PIGTAILS REMAINS TO SUCTION, SANGUINOUS DRAINAGE NOTED. NO BM AT THIS TIME. PT DENIES PAIN/NAUSEA/CONSTIPATION. ABLE TO REPOSITION SELF IN BED. AFEBRILE.
--- NOTE | 2018-07-26 03:50 | NUR ---
AFEBRILE, VSS. SLEEPING. CHEST TUBE TO HIGH SUCTION SANGUINOUS DRAINAGE. PT ABLE TO RESPOSITION SELF IN BED.
--- NOTE | 2018-07-26 04:45 | NUR ---
ASSIST X1, CHARGE NURSE LOREN, WITH [facility] MORNING CARES. PT IS CALM/COOPERATIVE. VSS.
[2018-07-26 05:13] LABS: ANION GAP 14.9 (8-16); CARBON DIOXIDE 27.8 mmol/L (21-32); POTASSIUM 4.7 mmol/L (3.5-5.1)
[2018-07-26 05:16] LABS: MAGNESIUM 2.7 mg/dL (1.8-2.4); PHOSPHORUS 5.8 mg/dL (2.5-4.9)
[2018-07-26 06:21] LABS: BASOPHILS # (AUTO) 0.1 K/uL (0.00-0.22); BASOPHILS % (AUTO) 1.4 % (0.0-2.0); EOSINOPHILS # (AUTO) 0.5 K/uL (0-0.4); EOSINOPHILS % (AUTO) 7.2 % (0.0-4.0); LYMPHOCYTES # (AUTO) 1.1 K/uL (2.0-11.5); LYMPHOCYTES % (AUTO) 15.5 % (20.5-51.1); MEAN CORPUSCULAR HEMOGLOBIN 33 pg (27-31); MEAN CORPUSCULAR HGB CONC 35 g/dL (33-37); MEAN CORPUSCULAR VOLUME 95.5 fL (80-94); MONOCYTES # (AUTO) 0.6 K/uL (0.8-1.0); MONOCYTES % (AUTO) 8.6 % (1.7-9.3); NEUTROPHILS # (AUTO) 4.6 K/uL (1.8-7.7); NEUTROPHILS % (AUTO) 67.3 % (42.2-75.2); PLATELET COUNT (AUTO) 321 K/uL (140-450); RED BLOOD CELL COUNT(AUTO) 2.07 MIL/uL (4.20-6.10); RED CELL DISTRIBUTION WIDTH 17.9 % (11.6-13.7); WHITE BLOOD COUNT (AUTO) 6.9 K/uL (4.8-10.8)
[2018-07-26] MEDS: ALBUTEROL SULFATE/IPRATROPIU 3 ML SOL IH SCH ×3 (06:25→18:36)
[2018-07-26 06:37] LABS: HEMATOCRIT 19.8 % (36-52); HEMOGLOBIN 6.8 g/dL (12.0-18.0)
--- NOTE | 2018-07-26 07:13 | NUR ---
RECEIVED BEDSIDE REPORT FROM MEDICAL RECORD TRANSCRIBER RN, FER, FOR CONTINUITY OF CARE. PATIENT IS AAOX4, ABLE TO MAKE NEEDS KNOWN AND FOLLOWS COMMANDS. PATIENT SKIN IS WARM, DRY, AFEBRILE, INTACT. HE HAS PERIPHERAL IV SITE TO L.FA, 20 GAUGE, ASYMPTOMATIC AND PATENT. PATIENT HAS NASAL OXIMIZER TO 2LPM, NREATHING EVEN AND UNLABORED. HE HAS A PIGTAIL CHEST TUBE TO RL LATERAL CHEST AND CHEST TUBE TO RU LATERAL CHEST, BOTH TO SUCTION 20MMGH WITH SEROUS DRAINAGE, NO SIGNS OF AIR LEAK NOTED. HE IS SR ON MONITOR, DENIES ANY PAIN AT THIS TIME. HOB IS SEMI-REHMAN, BED LOCKED, SIDE RAILS UP. CALL LIGHT WITHIN REACH, NO SIGNS OF DISTRESS NOTED. WILL CONTINUE TO MONITOR
--- NOTE | 2018-07-26 07:14 | NUR ---
GAVE BEDSIDE REPORT TO MORNING SHIFT ZACHARY INMAN.
[2018-07-26] MEDS: BLOOD GLUCOSE MONITORING 1 DEV DEV FS SCH ×4 (07:49→20:53)
--- NOTE | 2018-07-26 07:56 | NUR ---
PROVIDED PATIENT WITH BREAKFAST TRAY, POSITIONED PATIENT TO SIT ON SIDE OF BED, WAS ABLE TO TOLERATE FOR 10 MINS, HOWEVER PATIENT WAS TIRED AND WANTED TO GO BACK TO SLEEP. ASSISTED PATIENT BACK TO BED IN SEMI REHMAN POSITION. VITALS STABLE, WILL CONTINUE TO MONITOR
[2018-07-26] MEDS: SEVELAMER CARBONATE 800 MG TAB PO SCH ×3 (08:00→17:00)
[2018-07-26] MEDS: FUROSEMIDE 40 MG TAB PO SCH ×2 (08:16→13:00)
[2018-07-26] MEDS: LOSARTAN 50 MG TAB PO SCH (08:16)
[2018-07-26] MEDS: NIFEdipine 60 MG TABER PO SCH ×2 (08:16→20:56)
[2018-07-26] MEDS: METOPROLOL SUCCINATE 50 MG TABER PO SCH (08:16)
[2018-07-26] MEDS: hydrALAZINE 25 MG TAB PO SCH ×3 (08:16→17:00)
[2018-07-26] MEDS: CYANOCOBALAMIN 100 MCG TAB PO SCH (09:30)
[2018-07-26] MEDS: FOLIC ACID 1 MG TAB PO SCH (09:31)
[2018-07-26] MEDS: LACTULOSE 20 GM/30 ML UDC PO SCH ×2 (09:31→20:56)
[2018-07-26] MEDS: CALCIUM ACETATE 667 MG TAB PO SCH ×3 (09:31→17:00)
[2018-07-26] MEDS: VIT-B COMP/VIT-C/FOLIC ACID 1 TAB PO SCH (09:31)
--- NOTE | 2018-07-26 09:56 | NUR ---
DR. NELSON IN TO SEE AND EXAMINE PATIENT, UPDATED ON PATIENT'S CONDITION. WILL FOLLOW UP ON ANY ORDERS
--- NOTE | 2018-07-26 11:04 | NUR ---
DR. MALIK IN TO SEE PATIENT.
--- NOTE | 2018-07-26 11:40 | NUR ---
SPINNING LATHE OPERATOR HYDRAULIC IN TO SEE PATIENT
--- NOTE | 2018-07-26 14:00 | NUR ---
FAXED TO [facility] ALL THE PAPER WORK FOR REQUESTING HIGHER LEVEL OF CARE.
--- NOTE | 2018-07-26 14:05 | NUR ---
CALLED [facility] [phone] LEFT A MESSAGE REGARDING HIGHER LEVEL OF CARE
--- NOTE | 2018-07-26 15:00 | NUR ---
PATIENT FAMILY AT BEDSIDE
--- NOTE | 2018-07-26 15:11 | NUR ---
MAINTENANCE OF WAY SUPERVISOR, MOON IS HERE.
--- NOTE | 2018-07-26 15:40 | NUR ---
AMY FROM [facility] CALLED BACK AND STATED THE CARDIO THORACIC SURGEON IS BUSY AND CAN NOT ACCEPT ANY PATIENT TODAY. CALLED [facility] AND LEFT A MESSAGE FOR PENNY FOR OTHER HOSPITAL.
--- NOTE | 2018-07-26 15:45 | NUR ---
PENNY FROM [facility] CALLED BACK AND STATED , PT CAN STAY IN ICU AND WILL TRY TOMORROW TO TRANSFER TO [facility] IF NOT WILL TRY ANOTHER HOSPITAL .
--- NOTE | 2018-07-26 15:50 | NUR ---
07/26/18 RD FOLLOW UP COMPLETED PLEASE REFER TO NUTRITION ASSESSMENT UNDER CARE ACTIVITY FOR ESTIMATED NUTRITIONAL NEEDS. 1. CONTINUE RENAL DIET WITH 1 LITER FLUID RESTRICTION TOLERATED 2. RD PROVIDED NUTRITION EDUCATION ON RENAL DIET WITH HEMODIALYSIS 3. RD TO FOLLOW-UP 3-5 DAYS, MODERATE RISK ANNE XIONG, RD
[2018-07-26] MEDS: EPOETIN ALFA 10,000 UNITS/ML VIAL SUBQ SCH (18:31)
--- NOTE | 2018-07-26 18:43 | NUR ---
SCREEN FOR LOW YOBANI SCALE: SKIN INTACT -OFFLOAD BILATERAL HEELS BY PLACING PILLOWS UNDER CALVES UNLESS OTHERWISE CONTRAINDICATED -TURN AND REPOSITION Q2H, OFFLOAD SACRALCOCCYX AND BUTTOCKS BY TURNING RIGHT AND LEFT -CONTINUE TO FOLLOW RD RECOMMENDATIONS
--- NOTE | 2018-07-26 19:00 | NUR ---
PT'S AT BEDSIDE. PT AWAKE AND ALERT, CONVERSING WITH AND EATING DINNER.
--- NOTE | 2018-07-26 19:24 | NUR ---
ENDORSED CONTINUITY OF CARE TO CERTIFIED PERSONAL FINANCE COUNSELOR RNFER AND AMELIA, NO SIGNS OF DISTRESS NOTED.
--- NOTE | 2018-07-26 19:30 | NUR ---
REPORT RECEIVED FROM DAY SHIFT NURSE, HENNY SHARMA FOR CONTINUITY OF CARE. FULL CODE. NKDA. INITIAL VITAL SIGNS: HR 86, BP 102/54, RR 15, SPO2 95% ON OXIMIZER ON 2LPM, TEMP 98.6 TEMPORAL ARTERY. PT A&OX4. PT REPORTS NO PAIN OR DISCOMFORT. PT'S PUPILS, LEFT AND RIGHT, 3MM PERRLA SLUGGISH, TRACK APPROPRIATELY. NSR ON MONITOR. 20G PIV LEFT FOREARM, PATENT, FLUSHED (PT REPORTS MILD PAIN UPON FLUSHING, 2/10). PALPABLE PULSES BILATERAL RADIALS. NON-PALPABLE, DOPPLERED PULSES BILATERAL POSTERIOR TIBIAL AND DORSALIS PEDIS. GINI FISTULA, THRILL AND BRUIT PRESENT. PATENT AIRWAY. BILATERAL BREATH SOUNDS CLEAR. RLL DIMINISHED. CHEST EXPANDS SYMMETRICALLY. BOWEL SOUNDS ACTIVE. ABD SOFT, FLAT, NON-TENDER. RENAL DIET, RESTRICTED FLUIDS (1L/DAY). SURGICAL INCISION WITH PIGTAIL CHEST DRAIN ON RIGHT LATERAL ABD DRAINING SANGUINOUS FLUID. SURGICAL INCISION WITH CHEST TUBE DRAIN ON UPPER RIGHT LATERAL CHEST DRAINING SANGUINOUS FLUID. SAFETY PRECAUTIONS IN PLACE. BED IN LOWEST POSITION. CALL LIGHT WITHIN REACH. PT'S CELLPHONE AT BEDSIDE.
--- NOTE | 2018-07-26 20:05 | NUR ---
FRIEND OF PATIENT AT BEDSIDE. PT RESTING COMFORTABLY, NO SIGNS OF DISTRESS.
--- NOTE | 2018-07-26 23:06 | NUR ---
BGL 187, HUMALOG SLIDING SCALE DISCONTINUED BY DR. CARDENAS. CONTACTED DR. JUNG TO CLARIFY ORDERS ON INSULIN ADMINISTRATION. DR. JUNG ADVISED TO HOLD INSULIN AND NOTIFY IF BGL >200.
--- NOTE | 2018-07-26 23:51 | NUR ---
PT PROVIDED EDUCATION ON ASCITES, HTN, HF, CHEST TUBES IN [place]. LANGUAGE BARRIER PRESENT. PT REQUIRES REINFORCEMENT.
[2018-07-27] VITALS (8 sets, daily range): BP systolic 107–157; BP diastolic 52–97
--- NOTE | 2018-07-27 01:29 | NUR ---
PT APPEARS SLIGHTLY RESTLESS. PT SAT UP IN BED AND REMOVED OXIMIZER FROM NOSTRILS. PT SAID THAT HIS BACK WAS ITCHY AND NEEDED HELP, ASSISTANCE WAS PROVIDED. PT PUT BACK ON OXIMIZER AND TOLERATES IT WELL. PT RESTING AT THIS TIME.
--- NOTE | 2018-07-27 02:35 | NUR ---
PT ASKED IF HE WOULD LIKE A DOSE OF COLACE TO HELP FACILITATE A BOWEL MOVEMENT. PT STATED THAT HE WOULD. MEDICINE ADMINISTERED PRESCRIBED.
[2018-07-27] MEDS: DOCUSATE SODIUM 100 MG GELCAP PO PRN (02:36)
[2018-07-27] MEDS ORDERED: ALBUTEROL SULFATE/IPRATROPIU 3 ML SOL IH PRN (03:20)
--- NOTE | 2018-07-27 03:30 | NUR ---
PT ATTEMPTED BOWEL MOVEMENT ON BEDPAN WITHOUT SUCCESS. BEDPAN REMOVED, PATIENT REPOSITIONED. PT RESTING, NO SIGNS OF DISTRESS.
--- NOTE | 2018-07-27 04:00 | NUR ---
PT OFFERED ORAL CARE, PM CARE, AND HYGIENE. PT REFUSED ALL HYGIENE CARE AND STATES THAT HE'LL PERFORM HYGIENE IN THE MORNING.
--- NOTE | 2018-07-27 04:45 | NUR ---
PT ATTEMPTED BOWEL MOVEMENT ON BEDPAN WITHOUT SUCCESS. BEDPAN REMOVED. PT RESTING.
[2018-07-27 06:11] LABS: BASOPHILS # (AUTO) 0.1 K/uL (0.00-0.22); BASOPHILS % (AUTO) 1.2 % (0.0-2.0); EOSINOPHILS # (AUTO) 0.4 K/uL (0-0.4); EOSINOPHILS % (AUTO) 4.8 % (0.0-4.0); HEMATOCRIT 21.8 % (36-52); HEMOGLOBIN 7.4 g/dL (12.0-18.0); LYMPHOCYTES # (AUTO) 0.9 K/uL (2.0-11.5); LYMPHOCYTES % (AUTO) 11.8 % (20.5-51.1); MEAN CORPUSCULAR HEMOGLOBIN 32 pg (27-31); MEAN CORPUSCULAR HGB CONC 34 g/dL (33-37); MONOCYTES # (AUTO) 0.7 K/uL (0.8-1.0); MONOCYTES % (AUTO) 9.1 % (1.7-9.3); NEUTROPHILS # (AUTO) 5.4 K/uL (1.8-7.7); NEUTROPHILS % (AUTO) 73.1 % (42.2-75.2); PLATELET COUNT (AUTO) 326 K/uL (140-450); RED BLOOD CELL COUNT(AUTO) 2.29 MIL/uL (4.20-6.10); RED CELL DISTRIBUTION WIDTH 18.4 % (11.6-13.7); WHITE BLOOD COUNT (AUTO) 7.4 K/uL (4.8-10.8)
--- NOTE | 2018-07-27 06:20 | NUR ---
DR. MALIK AT BEDSIDE EVALUATING PATIENT AND UPDATING HIM ON HIS STATUS. WILL FOLLOW UP ON ORDERS.
[2018-07-27] MEDS: ALBUTEROL SULFATE/IPRATROPIU 3 ML SOL IH SCH ×3 (06:35→19:22)
[2018-07-27 06:38] LABS: CARBON DIOXIDE 30.2 mmol/L (21-32); POTASSIUM 4.2 mmol/L (3.5-5.1)
[2018-07-27] MEDS: BLOOD GLUCOSE MONITORING 1 DEV DEV FS SCH ×4 (06:45→20:48)
[2018-07-27 06:54] LABS: PHOSPHORUS 4.2 mg/dL (2.5-4.9)
[2018-07-27] MEDS ORDERED: ALBUTEROL SULFATE/IPRATROPIU 3 ML SOL IH SCH (07:00)
[2018-07-27 07:06] LABS: CREATININE 5.7 mg/dL (0.7-1.3)
[2018-07-27] MEDS ORDERED: BISACODYL 10 MG SUPP RC SCH (07:12)
--- NOTE | 2018-07-27 07:14 | NUR ---
REPORT GIVEN TO DAY SHIFT NURSES, LORNE FOR CONTINUITY OF CARE. VITAL SIGNS STABLE AT THIS TIME. PT RESTING COMFORTABLY, NO SIGNS OF DISTRESS.
[2018-07-27 07:21] LABS: MAGNESIUM 1.9 mg/dL (1.8-2.4)
--- NOTE | 2018-07-27 08:00 | NUR ---
PATIENT ALERT ORIENTED TO SELF, PLACE TIME, SITUATION, ON OXYMIZER SO2 >94%, CHEST TUBE X2 AT RIGHT LUNG BOTH TO SUCTION, NO LEAK, SINUS RHYTHM ON MONITOR, CURRENTLY HAVING BREAKFAST INDEPENDENTLY, HEAD OF BED UP >45 DEGREES, ANURIC WITH RIGHT ARM AV FISTULA WITH BRUIT AND THRILL, LEFT HAND GAUGE 22 IV PERIPHERAL LINE SALINE LOCKED, SKIN INTACT, CALL GRIFFIN WITHIN REACH
[2018-07-27] MEDS: FOLIC ACID 1 MG TAB PO SCH (08:15)
[2018-07-27] MEDS: SEVELAMER CARBONATE 800 MG TAB PO SCH ×3 (08:15→16:48)
[2018-07-27] MEDS: LACTULOSE 20 GM/30 ML UDC PO SCH ×2 (08:15→21:31)
[2018-07-27] MEDS: VIT-B COMP/VIT-C/FOLIC ACID 1 TAB PO SCH (08:16)
[2018-07-27] MEDS: CALCIUM ACETATE 667 MG TAB PO SCH ×3 (08:16→16:48)
[2018-07-27] MEDS: CYANOCOBALAMIN 100 MCG TAB PO SCH (08:19)
[2018-07-27] MEDS: hydrALAZINE 25 MG TAB PO SCH ×3 (09:56→16:48)
[2018-07-27] MEDS: LOSARTAN 50 MG TAB PO SCH (09:56)
[2018-07-27] MEDS: METOPROLOL SUCCINATE 50 MG TABER PO SCH (09:57)
[2018-07-27] MEDS: FUROSEMIDE 40 MG TAB PO SCH ×2 (09:57→12:36)
[2018-07-27] MEDS: NIFEdipine 60 MG TABER PO SCH ×2 (10:01→21:31)
--- NOTE | 2018-07-27 10:08 | NUR ---
CALLED [facility] ,SPOKE WITH AMY DONALDSON , STILL LOOKING FOR ACCEPTING (CARDIOTHORACIC SURGEON )AND WILL CALL BACK.
[2018-07-27] MEDS ORDERED: SODIUM FERRIC GLUCONATE 125 MG in NACL 0.9% 100 ML IV SCH (10:30)
--- NOTE | 2018-07-27 10:34 | NUR ---
CALLED PENNY VIZCAINO FROM [facility] REGARDING TRANSFER STATED OK TO [facility] UNDER THE CARE OF DR GN. CALLED DR NG AND NOTIFIED HIM PT'S NEEDS FOR HIGHER LEVEL OF CARE ,AND DR LARSON (RESIDENT) WILL CALL HIM . FAXED ALL PAPER WORK TO [facility] [phone] AND WAITING FOR CALL BACK .
--- NOTE | 2018-07-27 12:00 | NUR ---
PATIENT HAVING LUNCH INDEPENDENTLY
--- NOTE | 2018-07-27 14:21 | NUR ---
I RECEIVED A CALL FROM [facility] MENDOZA RAMIREZ ,THERE IS NO BED AVAILABLE AT THIS TIME
--- NOTE | 2018-07-27 15:00 | NUR ---
CALLED BACK JAMES DONALDSON AT [facility] REMINDED HER DR NG ACCEPTED PT AND ALSO INSURANCE ([employer]) WILL GIVEN THE AUTHORIZATION. JAMES STATED SHE WILL CALL WHEN BED AVAILABLE
--- NOTE | 2018-07-27 15:23 | NUR ---
I RECEIVED A CALL FROM [facility] TRANSFER [place] UPDATED ALL PATIENT'S INFORMATION, PROVIDED INSURANCE CM 'S NUMBER IF THEY HAVE A BED THEY WILL CALL BACK . PROVIDED FLOOR NUMBER [phone]. TO CHECK THE STATUS WITH [place] [phone] OPT 2 OPT 3
--- NOTE | 2018-07-27 16:50 | NUR ---
I RECEIVED A CALL FROM [facility] PT CAN NOT GO TO [place] BECAUSE NOT CONTACTED WITH [place] . TO TRY [facility] [phone]. I CALLED [facility] AND GAVE THE ACCEPTING DR CORTEZ [phone] MALIK THE PHONE NUMBER FOR DR NOAM RODRIGUEZ .
[2018-07-27] MEDS ORDERED: METO50TE2 PO (16:57)
[2018-07-27] MEDS ORDERED: SEVE800T6 PO (16:57)
[2018-07-27] MEDS ORDERED: PROC10I SUBQ (16:57)
--- NOTE | 2018-07-27 17:11 | NUR ---
PENNY VIZCAINO FROM [facility] CALLED BACK ,HE SPOKE WITH DR DANA PARIKH AND THERE IS NO [facility] BED TODAY AND WILL TRY TOMORROW. NOTIFIED DR MALIK.
--- NOTE | 2018-07-27 19:25 | NUR ---
RECEIVED REPORT FROM AM NURSE. PT AT BED AWAKE. ALERT AND ORIENTED X4, CALM, COOPERATIVE, PERRLA 3MM, BRISK, S1S2 PRESENT, 2+ BILATERAL UPPER EXTREMITIES, 2+ BILATERAL LOWER EXTREMITIES, CAP REFILL <3S, LUNG SOUNDS CLEAR THROUGHOUT, DIMINISHED ON BASES, BOWEL SOUNDS PRESENT ON ALL QUADRANTS, HYPOACTIVE, ABDOMEN, SOFT, ROUND, NONDISTENDED, NON TENDER, MUSCLE STRENGTH 5/5 ON BILATERAL UPPER AND LOWER EXTREMITIES, SKIN INTACT, NON ELASTIC, APPROPRIATE TO ETHNICITY, PT CURRENTLY ON HEMODIALYSIS, 2L O2 ON OXYMYZER, CHEST TUBE IN PLACE. SIDE RAILS UP X2, ALL ALARMS IN PLACE, LEFT HAND 22 GAUGE PERIPHERAL IV, PATENT, RIGHT AV FISTULA, . WILL CONTINUE TO MONITOR PT.
--- NOTE | 2018-07-27 22:15 | NUR ---
PT ASLEEP AT BED, EYES CLOSED, BREATHING REGULARLY 02SAT 100%, PT ON 2L OXIMIZER, CHEST TUBE SUCTION RUNNING AT 25 MMHG, SIDERAILS UP X2, WILL CONTINUE TO MONITOR PT.
[2018-07-28] VITALS: BP 126/58
[2018-07-28 04:00] VITALS: BP 117/61
--- NOTE | 2018-07-28 04:15 | NUR ---
AM CARE PROVIDED, ON STAND BY ASSIST. PT PERFORMED ADL INDEPENDENTLY. TOLERATED THE ACTIVITY WELL. SIDE RAILS UP X2, ALARMS IN PLACE, CHEST TUBE SUCTION RUNNING AT DOCUMENTED SETTINGS, 2L O2 OXIMIZER IN PLACE, WILL CONTINUE TO MONITOR PT.
[2018-07-28 04:52] LABS: BASOPHILS # (AUTO) 0.1 K/uL (0.00-0.22); BASOPHILS % (AUTO) 1.4 % (0.0-2.0); EOSINOPHILS # (AUTO) 0.4 K/uL (0-0.4); EOSINOPHILS % (AUTO) 4.8 % (0.0-4.0); HEMATOCRIT 22.3 % (36-52); HEMOGLOBIN 7.7 g/dL (12.0-18.0); LYMPHOCYTES # (AUTO) 1.2 K/uL (2.0-11.5); MEAN CORPUSCULAR HEMOGLOBIN 33 pg (27-31); MEAN CORPUSCULAR HGB CONC 35 g/dL (33-37); MEAN CORPUSCULAR VOLUME 95.6 fL (80-94); MONOCYTES # (AUTO) 0.8 K/uL (0.8-1.0); MONOCYTES % (AUTO) 9.8 % (1.7-9.3); NEUTROPHILS # (AUTO) 5.4 K/uL (1.8-7.7); PLATELET COUNT (AUTO) 344 K/uL (140-450); RED BLOOD CELL COUNT(AUTO) 2.33 MIL/uL (4.20-6.10); RED CELL DISTRIBUTION WIDTH 18.2 % (11.6-13.7); WHITE BLOOD COUNT (AUTO) 7.8 K/uL (4.8-10.8)
[2018-07-28 05:39] LABS: ANION GAP 10.4 (8-16); CARBON DIOXIDE 31.8 mmol/L (21-32); POTASSIUM 4.2 mmol/L (3.5-5.1)
[2018-07-28 05:42] LABS: MAGNESIUM 2.5 mg/dL (1.8-2.4); PHOSPHORUS 4.8 mg/dL (2.5-4.9)
--- NOTE | 2018-07-28 06:00 | NUR ---
PT TRANSFERRED TO [facility] FLOOR ROOM 125B, REPORT GIVEN TO HENNY LAMB FOR CONTINUITY OF CARE, PT ON BED AWAKE, BREATHING REGULARLY, ON 02 OXYGEN VIA NC, CHEST TUBES IN PLACE ON WALL SUCTION AT DOCUMENTED SETTINGS, SIDE RAILS UP X2, ALARMS IN PLACE, NURSE CALL LIGHT BUTTON AT REACH.
[2018-07-28 06:20] VITALS: BP 105/61
--- NOTE | 2018-07-28 06:20 | NUR ---
RECEIVED PT TRANSFER FROM ICU, AAOX4, ABLE TO MAKE NEEDS KNOWN, VITAL SIGNS TAKEN:BP-105/61, HR-78, RR-18, TEMP-97.7, SAT-100% ON O2 2L VIA NASAL CANNULA, DENIES ANY PAIN, NO SOB NOTED, WITH [address] ATTACHED TO SUCTION AT 25 MMHG, SEROSANGUINEOUS DRAINAGE NOTED, DRESSING TO RT CHEST DRY AND INTACT, RT UA AV GRAFT WITH BRUIT AND THRILL, FOR HEMODIALYSIS TODAY, SAFETY MEASURES IN PLACE WITH BED ALARM ON, CALL LIGHT WITHIN REACH.
[2018-07-28] MEDS: BLOOD GLUCOSE MONITORING 1 DEV DEV FS SCH ×2 (07:06→11:30)
--- NOTE | 2018-07-28 07:06 | NUR ---
BLOOD SUGAR CHECKED WITH 103 RESULT, PT WATCHING TV, NO DISTRESS NOTED.
--- NOTE | 2018-07-28 07:20 | NUR ---
PT AWAKE, NO SIGNS OF DISTRESS, BEDSIDE REPORT GIVEN TO HENNY LAYTON FOR CONTINUITY OF CARE.
--- NOTE | 2018-07-28 07:20 | NUR ---
PT REPORT RECEIVED AT BEDSIDE, PT IS AWAKE AND ALERT, NO S/S OF ANY ACUTE DISTRESS OR SOB NOTED. PT IS ON 2L O2 NC. R LUNG CHEST TUBES IN PLACE ON LOW SUCTION. PT HAS A R AV GRAFT FOR DIALYSIS. PT IS ORDERED TO HAVE DIALYSIS TODAY; HOLDING ALL BP MEDS. PT STATES THAT HE "DOES NOT URINATE ANYMORE" DUE TO KIDNEY FAILURE. IV SITE NOTED ON THE L FA, 22 G, SALINE LOCKED. SKIN IS INTACT ASIDE FROM CHEST TUBE ACCESS. FALL PRECAUTIONS ARE IN PLACE. CALL LIGHT WITHIN REACH, WILL CONTINUE TO MONITOR.
[2018-07-28] MEDS: ALBUTEROL SULFATE/IPRATROPIU 3 ML SOL IH SCH ×2 (07:22→14:26)
[2018-07-28 08:00] VITALS: BP 101/53
--- NOTE | 2018-07-28 08:30 | NUR ---
CALLED [facility] SPOKE WITH [employer]SE [employer]P STATED DR MEJIA WANTED TO TALK TO OUR ECM[employer] SPECIALIST , PROVIDED THE NUMBER TO DR MALIK [phone] NO CELL PHONE PROVIDED . WAITING FOR THE CALL BACK.
[2018-07-28] MEDS: METOPROLOL SUCCINATE 50 MG TABER PO SCH (09:00)
[2018-07-28] MEDS: NIFEdipine 60 MG TABER PO SCH (09:00)
[2018-07-28] MEDS: FUROSEMIDE 40 MG TAB PO SCH ×2 (09:00→15:10)
[2018-07-28] MEDS: hydrALAZINE 25 MG TAB PO SCH ×2 (09:00→13:00)
[2018-07-28] MEDS: LOSARTAN 50 MG TAB PO SCH (09:00)
--- NOTE | 2018-07-28 09:00 | NUR ---
SPOKE WITH PENNY VIZCAINO FROM [facility] UPDATED HER ALL THE INFORMATION THAT [facility] ACCEPTED PT, [facility] DR MEJIA WANTED TO TALK TO OUR PULMO DR JANIYA HAS ACCEPTED DR BUT NO BED AVAILABLE . PER PENNY VIZCAINO SHE CAN'T AUTHORIZE [facility] BECAUSE IT WASN'T CONTRACTED WITH [facility]. TO TRY [facility] THE ACCEPTING DR WILL BE DR. LINDA BROWN [phone] .
--- NOTE | 2018-07-28 09:10 | NUR ---
PT IS HAVING DIALYSIS AT THIS TIME. DIALYSIS NURSE, DANICA, SAYS TO WAIT TO GIVE PT'S AM MEDS UNTIL DIALYSIS IS FINISHED. CHARGE NURSE NETTA IS AWARE.
--- NOTE | 2018-07-28 10:30 | NUR ---
CALLED [facility] ADMITTING SPOKE WITH [place] FAXED ALL PAPER WORK TO [phone] MCKEON NUMBER [phone] MALIK.
--- NOTE | 2018-07-28 11:15 | NUR ---
CALLED [facility] PENNY NOTIFIED THAT DR MALIK TALKED TO DR MCKEON AND DR MCKEON STATED HE IS NEW TO THE [facility] HAS NO IDE[facility] THAT [facility] CARDIO THORACIC SURGEON AND UNABLE TO ACCEPT PATIENT. DR MALIK SPOKE WITH PENNY AND STATED ALL THE CONCERN AND UPDATE PATIENT CONDITION , PENNY STATED SHE HAS MEETING WITH THE MEDICAL TEAM AT 1245 ,WILL PRESENT THE CASE AND CONCERN AND WILL CALL BACK.
[2018-07-28 12:00] VITALS: BP 105/58
[2018-07-28] MEDS: SEVELAMER CARBONATE 800 MG TAB PO SCH ×2 (12:00→12:51)
--- NOTE | 2018-07-28 12:08 | NUR ---
PT ASSISTED TO BEDSIDE COMMODE FOR BM, TO ACCOMMODATE HIS CHEST TUBES. PT DOES NOT WANT TO USE BEDPAN.
--- NOTE | 2018-07-28 12:45 | NUR ---
RECEIVED A CALL FROM [facility] [employer] [facility] [facility] THAT DR MEJIA WANTED TO TALK TO THE TELEPHONE ORDER CLERK , CALLED DR CASTRO AND PROVIDED DR CASTRO'S CELL PHONE TO MELI DONALDSON AND WILL GIVE TO DR MEJIA
[2018-07-28] MEDS: LACTULOSE 20 GM/30 ML UDC PO SCH (12:50)
[2018-07-28] MEDS: VIT-B COMP/VIT-C/FOLIC ACID 1 TAB PO SCH (12:51)
[2018-07-28] MEDS: CYANOCOBALAMIN 100 MCG TAB PO SCH (12:51)
[2018-07-28] MEDS: FOLIC ACID 1 MG TAB PO SCH (12:51)
[2018-07-28] MEDS: CALCIUM ACETATE 667 MG TAB PO SCH ×2 (12:51→15:09)
--- NOTE | 2018-07-28 12:55 | NUR ---
ADMINISTERED THE SCHEDULED AM MEDS NOW THAT PT IS DONE WITH DIALYSIS. HELD THE NOON DOSE OF RENVELA, SINCE PT GOT THE 9 AM DOSE LATE.
--- NOTE | 2018-07-28 15:02 | NUR ---
RECEIVED A CALL FROM [facility] , ARE ACCEPTING THE PATIENT. ACCEPTING DR WILL BE DR LOZANO AND CARDIO THORACIC SURGEON WILL BE DR BLAS CARTER. CALLED PENNY GONSALEZ CM AND RECEIVED THE AUTH # [id number] . CALLED [facility] AND PROVIDED THE AUTH NUMBER AND DREDGE PIPEMAN WILL CALL BACK WHEN BED AVAILABLE.
[2018-07-28 16:00] VITALS: BP 109/57
[2018-07-28] MEDS: ACETAMINOPHEN 325 MG TAB PO PRN (16:32)
--- NOTE | 2018-07-28 16:34 | NUR ---
GAVE REPORT TO HENNY ZARCO, FOR PT'S TRANSFER TO [facility].
--- NOTE | 2018-07-28 17:00 | NUR ---
PT PICKED UP BY [facility] TRANSPORT TO TRANSFER TO [facility]. PT WAS GIVEN DC INSTRUCTIONS AND VERBALIZED UNDERSTANDING WHY HE IS GOING TO [facility]. CHEST TUBES AND IV LINE LEFT IN PLACE. WRIST BANDS REMOVED. PT LEFT WITH ALL HIS BELONGINGS IN STABLE CONDITION. REPORT WAS GIVEN TO HENNY ZARCO, AT [facility].
== END 2018-07-28 17:00 | disposition short-term general hospital (02) | DRG 469 ==
LOC: MED 00:44 → MTU 03:02 → MIC 07-20 19:40 → MMU 07-28 06:00
PROVIDERS: ADMIT General Practice; ATTEND General Practice
PROC: 5A1D70Z Performance of Urinary Filtration, Intermittent, Less than 6 Hours Per Day (ICD-10-PCS; 2018-07-18)
PROC: 5A1D70Z Performance of Urinary Filtration, Intermittent, Less than 6 Hours Per Day (ICD-10-PCS; 2018-07-19)
PROC: 0W993ZZ Drainage of Right Pleural Cavity, Percutaneous Approach (ICD-10-PCS; 2018-07-20)
PROC: 5A1D70Z Performance of Urinary Filtration, Intermittent, Less than 6 Hours Per Day (ICD-10-PCS; 2018-07-20)
PROC: 0W9930Z Drainage of Right Pleural Cavity with Drainage Device, Percutaneous Approach (ICD-10-PCS; principal; 2018-07-21)
PROC: 5A1D70Z Performance of Urinary Filtration, Intermittent, Less than 6 Hours Per Day (ICD-10-PCS; 2018-07-21)
PROC: 5A1D70Z Performance of Urinary Filtration, Intermittent, Less than 6 Hours Per Day (ICD-10-PCS; 2018-07-23)
PROC: 0W9930Z Drainage of Right Pleural Cavity with Drainage Device, Percutaneous Approach (ICD-10-PCS; 2018-07-24)
PROC: 5A1D70Z Performance of Urinary Filtration, Intermittent, Less than 6 Hours Per Day (ICD-10-PCS; 2018-07-26)
PROC: 5A1D70Z Performance of Urinary Filtration, Intermittent, Less than 6 Hours Per Day (ICD-10-PCS; 2018-07-28)
DX: N17.0 Acute kidney failure with tubular necrosis (principal); J96.01 Acute respiratory failure with hypoxia; R57.9 Shock, unspecified; I13.2 Hypertensive heart and chronic kidney disease with heart failure and with stage 5 chronic kidney disease, or end stage renal disease; E44.0 Moderate protein-calorie malnutrition; D62 Acute posthemorrhagic anemia; E11.22 Type 2 diabetes mellitus with diabetic chronic kidney disease; I50.43 Acute on chronic combined systolic (congestive) and diastolic (congestive) heart failure; E83.39 Other disorders of phosphorus metabolism; E83.41 Hypermagnesemia; E87.1 Hypo-osmolality and hyponatremia; N18.6 End stage renal disease; E87.5 Hyperkalemia; D63.8 Anemia in other chronic diseases classified elsewhere; E78.5 Hyperlipidemia, unspecified; E87.0 Hyperosmolality and hypernatremia; J94.2 Hemothorax; J94.8 Other specified pleural conditions; J98.11 Atelectasis; E87.8 Other disorders of electrolyte and fluid balance, not elsewhere classified; K59.00 Constipation, unspecified; J93.9 Pneumothorax, unspecified; I27.21 Secondary pulmonary arterial hypertension; E11.649 Type 2 diabetes mellitus with hypoglycemia without coma; N20.0 Calculus of kidney; I34.0 Nonrheumatic mitral (valve) insufficiency; I35.0 Nonrheumatic aortic (valve) stenosis; I07.1 Rheumatic tricuspid insufficiency; I37.1 Nonrheumatic pulmonary valve insufficiency; Z99.2 Dependence on renal dialysis; Z83.3 Family history of diabetes mellitus; Z87.442 Personal history of urinary calculi; Z87.891 Personal history of nicotine dependence; Z91.19 Patient's noncompliance with other medical treatment and regimen; Z90.49 Acquired absence of other specified parts of digestive tract; Z68.24 Body mass index [BMI] 24.0-24.9, adult
CPT/HCPCS: 36415; 71045; 71260; 71275; 74018; 75989; 76604; 76700; 76942; 80048; 80053; 80076; 82140; 82150; 82247; 82248; 82607; 82728; 82746; 82948; 83036; 83540; 83605; 83615; 83690; 83735; 83880; 84100; 84155; 84436; 84439; 84443; 84479; 84484; 85025; 85045; 85610; 85730; 86886; 86900; 86901; 86920; 87040; 87070; 87075; 87081; 87205; 88305; 90935; 93970; 94640; 97161-GP; 99285; J0885; J1170; J1642; J2001; J2250; J2405; J2916; J3010; J7030; J7042; J7620; P9041; Q0092; Q9967